=== PATIENT | female | born 1940 | race Caucasian/White ===

== ENCOUNTER 2016-08-28 17:24 | Inpatient (IN) | payer MEDICARE, BC ==
[~2016-08-28] VITALS: Ht 165.1 cm; Wt 74.8 kg
--- NOTE | 2016-08-28 17:30 | NUR ---
PT BIB FOR [facility], N/V, DECREASED APPETITE FOR 3 DAYS. FAMILY MEMBER AT BS. HX OF STROKE- RIGHT SIDE DEFICIT. SEEN BY MD FOR EVAL. VSS. PT AAOX3. SAFETY AND COMFORT MEASURES PROVIDED. WILL MONITOR.
[2016-08-28] MEDS ORDERED: ONDANSETRON HCL/PF 4 MG/2 ML VIAL ONE (18:22)
[2016-08-28] MEDS ORDERED: MORPHINE SULFATE INJ 4 MG/ML DISP.SYRIN ONE (18:22)
[2016-08-28] MEDS ORDERED: IV SET PRIMARY PUMP SET 1 EA INFUS.SET MC ONE ×2 (18:23→22:22)
[2016-08-28] MEDS ORDERED: IV NS 0.9% 500 ML IV ONE (18:23)
[2016-08-28 18:26] LABS: BASOPHILS # (AUTO) 0.1 /CMM (0.0-0.2); BASOPHILS % (AUTO) 0.7 % (0.0-2.0); EOSINOPHILS # (AUTO) 0.1 /CMM (0.0-0.7); EOSINOPHILS % (AUTO) 1.4 % (0.0-6.0); HEMATOCRIT 38 % (33-45); HEMOGLOBIN 13.3 g/dL (11.5-14.8); LYMPHOCYTES # (AUTO) 2.2 /CMM (0.8-4.8); LYMPHOCYTES % (AUTO) 25.2 % (20.0-44.0); MEAN CORPUSCULAR HEMOGLOBIN 32 PG (26.0-33.0); MEAN CORPUSCULAR HGB CONC 35 g/dl (31.0-36.0); MEAN CORPUSCULAR VOLUME 92 fL (82-100); MONOCYTES # (AUTO) 0.6 /CMM (0.1-1.30); MONOCYTES % (AUTO) 6.6 % (2.0-12.0); NEUTROPHILS # (AUTO) 5.9 /CMM (1.8-8.9); NEUTROPHILS % (AUTO) 66.1 % (43.0-81.0); PLATELET COUNT (AUTO) 225 /CMM (150-450); RDW COEFFICIENT OF VARIATION 11.1 (11.5-15.0); RED BLOOD CELL COUNT(AUTO) 4.17 MIL/uL (4.0-5.2); WHITE BLOOD COUNT (AUTO) 8.9 K/uL (4.3-11.0)
[2016-08-28] MEDS ORDERED: MORPHINE SULFATE INJ 2 MG/ML DISP.SYRIN IV ONE (18:30)
[2016-08-28] MEDS ORDERED: ONDANSETRON HCL/PF - ER 4 MG/2 ML VIAL IV ONE (18:30)
[2016-08-28] MEDS ORDERED: IV NS 0.9% 500 ML BAG IV ONE (18:30)
--- NOTE | 2016-08-28 18:30 | NUR ---
IV ACCESS STARTED. PT MEDICATED ORDERED. URINE SAMPLE OBTAINED,SENT.
[2016-08-28 18:42] LABS: ALBUMIN 3.8 g/dL (3.4-5.0); BILIRUBIN,DIRECT 0.2 mg/dL (0.0-0.2); BILIRUBIN,TOTAL 1.3 mg/dL (0.2-1.0); TOTAL PROTEIN, SERUM 6.5 g/dL (6.4-8.2)
[2016-08-28 18:44] LABS: CREATININE 0.5 mg/dL (0.6-1.3); POTASSIUM 2.9 mmol/L (3.5-5.1)
[2016-08-28 18:47] LABS: APPEARANCE,URINE Clear (CLEAR); BILIRUBIN,URINE Negative (NEGATIVE); BLOOD, URINE Trace-lysed Ery/uL (NEGATIVE); COLOR,URINE Yellow (YELLOW); KETONES,URINE >=160 (NEGATIVE); LEUKOCYTE ESTERASE ,URINE Trace (NEGATIVE); NITRITE, URINE Negative (NEGATIVE); PH,URINE 6.5 (5.0-8.0); PROTEIN,URINE 30 mg/dl (NEGATIVE); UGLUCOSE Negative (NEGATIVE)
[2016-08-28 18:48] LABS: LACTIC ACID 1.3 mmol/L (0.4-2.0)
[2016-08-28] MEDS ORDERED: IOHEXOL-300 100 ML VIAL IV ONE (19:03)
[2016-08-28] MEDS ORDERED: CT SWABBABLE VALVE TRANS SET 1 EA INFUS.SET MC ONE (19:03)
[2016-08-28] MEDS ORDERED: IV NS 0.9% 250 ML IV ONE (19:03)
[2016-08-28 19:07] LABS: ADD URINE CULTURE YES; BACTERIA,URINE Few /HPF (None Seen); MUCUS,URINE Few /LPF (None Seen); RBC,URINE 2-3/HPF /HPF (0-2); SQUAMOUS EPITHELIAL CELL,UR Many /HPF (None Seen); URINE AMORPHOUS URATE Moderate /HPF (None Seen)
--- NOTE | 2016-08-28 19:15 | NUR ---
PT TAKEN TO CT
--- NOTE | 2016-08-28 20:00 | NUR ---
DR. HAN AT BEDSIDE.
[2016-08-28] MEDS ORDERED: LOSARTAN POTASSIUM 25 MG TABLET PO ONE (20:30)
[2016-08-28] MEDS ORDERED: LOSARTAN POTASSIUM 25 MG TABLET ONE (20:31)
--- NOTE | 2016-08-28 20:40 | NUR ---
CALLED [employer] FOR ADMISSION.
--- NOTE | 2016-08-28 20:55 | NUR ---
Note undone in EDM - 08/28/16 at 2057 by PEG IV removed. Catheter intact and site benign. Pressure and 4x4 applied to site. No bleeding noted. Patient discharged to home in stable condition. Written and verbal after care instructions given. Patient verbalizes understanding of instruction. ambulatory with a steady gait noted. pt aaox4 no acute distress noted, resp even and unlabored. advice pt not to drive or operate any machinery due to pt was given benadryl and narcotic medicine. pt verbalize understanding.
--- NOTE | 2016-08-28 21:03 | NUR ---
lennox nuñez [facility] mur[facility]. will call for report.
--- NOTE | 2016-08-28 21:18 | NUR ---
report called to teletypewriter operatorkristina camara. will transport pt via acls protocol.
[2016-08-28 21:45] VITALS: BP 184/79
--- NOTE | 2016-08-28 21:45 | NUR ---
TELE/RN NOTES RECEIVED REPORT FROM ER NURSE EDFOR NEW ADMITTED [id number] Y.O FEMALE FROM [facility]) ALERT, ORIENTED X2. ABLE TO VERBALIZE NEEDS. NO S/S OF SOB OR DISTRESS. ON OXYGEN 2L VANESSA NC FOR COMFORT MEASURES.IV ON LEFT HAND20 G , PATERNT.B/P ELEVATEDAND REPORTED TO MD b/p 184/79 with prn clonidine order. POTASSIUM AT 2.9 WITH ORDER OF 2 BAGS TO GIVE. ON IV ATB FOR UTI. WILL CONTINUE TO MONITOR. BELONGINGS CHECK. SKIN INTACT. CALL LIGHTS WITHIN REACH.
[2016-08-28] MEDS ORDERED: IV NS 0.9% 1,000 ML IV PRN (21:48)
[2016-08-28] MEDS ORDERED: CEFTRIAXONE 1 G in IV D5W 50 ML IV SCH (22:00)
[2016-08-28] MEDS ORDERED: ONDANSETRON HCL/PF 4 MG/2 ML VIAL IVP PRN (22:00)
[2016-08-28] MEDS ORDERED: CLONIDINE HCL 0.1 MG TABLET PO PRN (22:00)
[2016-08-28] MEDS ORDERED: MAG HYDROX/AL HYDROX/SIMETH 30 ML UDC PO PRN (22:00)
[2016-08-28] MEDS ORDERED: Z GUARD REMEDY 2 OZ OINT TP PRN (22:00)
[2016-08-28] MEDS ORDERED: ZOLPIDEM TARTRATE 5 MG TABLET PO PRN (22:00)
[2016-08-28] MEDS ORDERED: MAGNESIUM HYDROXIDE 30 ML UDC PO PRN (22:00)
[2016-08-28] MEDS ORDERED: POTASSIUM CL. PREMIX PERIPHER. 100 ML ONE (22:18)
[2016-08-28] MEDS ORDERED: CLONIDINE HCL 0.1 MG TABLET ONE (22:19)
[2016-08-28] MEDS ORDERED: IV NS 0.9% 1,000 ML ONE (22:22)
[2016-08-28] MEDS ORDERED: SECONDARY IV SET 1 EA INFUS.SET MC ONE (22:22)
[2016-08-28] MEDS: POTASSIUM CL. PREMIX PERIPHER. 50 ML IV SCH ×2 (22:47→23:57)
[2016-08-29] VITALS: BP 160/71
--- NOTE | 2016-08-29 00:53 | NUR ---
TELE/RN NOTES PATIENT TELE READING SR WITH PREMATURE ATRIAL COMPLEXES.
[2016-08-29] MEDS ORDERED: CEFTRIAXONE 1 G VIAL ONE (01:00)
[2016-08-29] MEDS ORDERED: IV D5W 50 ML IV ONE (01:01)
[2016-08-29] MEDS ORDERED: SECONDARY IV SET 1 EA INFUS.SET MC ONE (01:01)
[2016-08-29 02:19] VITALS: BP 160/71
[2016-08-29] MEDS ORDERED: ACETAMINOPHEN 325 MG TABLET ONE (03:19)
[2016-08-29] MEDS: ACETAMINOPHEN 325 MG TABLET PO PRN ×2 (03:24→22:22)
--- NOTE | 2016-08-29 06:34 | NUR ---
TELE/RN NOTES PATIENT IN BED, ASLEEP W/ NO S/S OF SOB OR DISTRESS. PROVIDE FLUIDS. MONITORING FOR ANY S/S OF COMPLICATION. WILL ENDORSE TO AM RN FOR KALLI.
--- NOTE | 2016-08-29 07:15 | NUR ---
TELE/RN AM NOTES RECEIVED PATIENT IN BED, AWAKE, ALERT, WITHOUT SOB, NO CHEST PAIN, ON OXYGEN 2L/M EMMA N/C TOLERATING WELL, SAT 99%. TELE MONITOR IN PLACE, PROPERLY WORKING HR 58, ASYMPTOMATIC. IV LINE LEFT HAND INTACT, PATENT. PER AUTO MECHANIC SUPERVISOR NURSE PATIENT HAS FECAL IMPACTION, WILL NOTIFY MD ACCORDINGLY. KEPT COMFORTABLE, NEEDS ANTICIPATED WITH CALL LIGHT WITHIN EASY REACH. WILL CONTINUE TO MONITOR
[2016-08-29 08:00] VITALS: BP 140/63
[2016-08-29 08:00] LABS: BASOPHILS % (AUTO) 0.4 % (0.0-2.0); EOSINOPHILS # (AUTO) 0.2 /CMM (0.0-0.7); EOSINOPHILS % (AUTO) 2.1 % (0.0-6.0); HEMATOCRIT 39 % (33-45); HEMOGLOBIN 13.3 g/dL (11.5-14.8); LYMPHOCYTES # (AUTO) 1.9 /CMM (0.8-4.8); LYMPHOCYTES % (AUTO) 18.5 % (20.0-44.0); MEAN CORPUSCULAR HEMOGLOBIN 32 PG (26.0-33.0); MEAN CORPUSCULAR HGB CONC 35 g/dl (31.0-36.0); MEAN CORPUSCULAR VOLUME 93 fL (82-100); MONOCYTES # (AUTO) 0.6 /CMM (0.1-1.30); MONOCYTES % (AUTO) 6.4 % (2.0-12.0); NEUTROPHILS # (AUTO) 7.3 /CMM (1.8-8.9); NEUTROPHILS % (AUTO) 72.6 % (43.0-81.0); PLATELET COUNT (AUTO) 222 /CMM (150-450); RDW COEFFICIENT OF VARIATION 12.5 (11.5-15.0); RED BLOOD CELL COUNT(AUTO) 4.16 MIL/uL (4.0-5.2)
[2016-08-29 08:31] LABS: CALCIUM, SERUM 8.6 mg/dL (8.5-10.1); CREATININE 0.5 mg/dL (0.6-1.3); MAGNESIUM 1.8 mg/dL (1.8-2.4); PHOSPHORUS 4.2 mg/dL (2.5-4.9)
[2016-08-29] MEDS ORDERED: ATOR10TA PO (09:37)
[2016-08-29] MEDS ORDERED: GLUC500T12 PO (09:37)
[2016-08-29] MEDS ORDERED: CLOP75TA2 PO (09:37)
[2016-08-29] MEDS ORDERED: DIPH1TAB70 PO (09:37)
[2016-08-29] MEDS ORDERED: CLOT10TR PO (09:37)
[2016-08-29] MEDS ORDERED: DOCU250C75 PO (09:37)
[2016-08-29] MEDS ORDERED: FURO20TA4 PO (09:37)
[2016-08-29] MEDS ORDERED: DULO20CA PO (09:37)
[2016-08-29] MEDS ORDERED: SACC250C6 PO (09:37)
[2016-08-29] MEDS ORDERED: HYDR-548 PO (09:37)
[2016-08-29] MEDS ORDERED: LIDO30AD10 TP (09:43)
[2016-08-29] MEDS ORDERED: LOSA50TA21 PO (09:43)
[2016-08-29] MEDS ORDERED: MEMA10TA PO (09:43)
[2016-08-29] MEDS ORDERED: QUET25TA PO (09:43)
[2016-08-29] MEDS ORDERED: POLY17PO4 PO (09:43)
[2016-08-29] MEDS ORDERED: POTA-88 PO (09:43)
[2016-08-29] MEDS ORDERED: ONDA4TAB5 PO (09:43)
[2016-08-29] MEDS ORDERED: LORA0.5T PO (09:43)
[2016-08-29] MEDS ORDERED: PREG50CA PO (09:43)
[2016-08-29] MEDS ORDERED: MELO-264 PO (09:43)
[2016-08-29] MEDS ORDERED: CALC500T52 PO (09:43)
[2016-08-29] MEDS ORDERED: MULT-24 PO (09:43)
[2016-08-29] MEDS: DOCUSATE SODIUM 100 MG CAPSULE PO SCH ×2 (09:46→17:40)
[2016-08-29] MEDS: PANTOPRAZOLE 40 MG TABLET.DR PO SCH (09:46)
[2016-08-29] MEDS ORDERED: VITA200C5 PO (09:47)
[2016-08-29] MEDS ORDERED: ASCO500T9 PO (09:47)
[2016-08-29] MEDS ORDERED: TAMS-12 PO (09:47)
[2016-08-29] MEDS ORDERED: RANI150C4 PO (09:47)
[2016-08-29] MEDS ORDERED: TOLT4CAP14 PO (09:47)
[2016-08-29] MEDS ORDERED: REPA2TAB9 PO (09:47)
[2016-08-29] MEDS ORDERED: VENL75CA56 PO (09:47)
[2016-08-29] MEDS ORDERED: BISACODYL SUPP (10 MG) 10 MG/SUPP.RECT SUPP.RECT RC PRN (10:00)
--- NOTE | 2016-08-29 10:05 | NUR ---
TELE/RN NOTES DR. LOPEZ VISITED/EXAMINED PATIENT, ORDERED DULCOLAX 10 MG PER RECTUM QD PRN, NOTED CARRIED OUT
--- NOTE | 2016-08-29 10:33 | NUR ---
TELE/RN NOTES DULCOLAX SUPPOSITORY GIVEN, TOLERATED WELL, WILL CONTINUE TO MONITOR
[2016-08-29] MEDS ORDERED: Potassium Chloride 20 MEQ in IV NS 0.9% 1,000 ML IV PRN (11:30)
[2016-08-29 12:00] VITALS: BP 149/70
[2016-08-29] MEDS: POTASSIUM CHLORIDE 20 MEQ TAB.PRT.SR PO SCH ×3 (12:30→14:17)
--- NOTE | 2016-08-29 12:52 | NUR ---
TELE/RN NOTES PATIENT HAD LARGE BM, DR. LOPEZ MADE AWARE
[2016-08-29 16:00] VITALS: BP 145/71
--- NOTE | 2016-08-29 19:56 | NUR ---
MS/RN CLOSING NOTES PATIENT IS IN THE BED, AWAKE, ALERT, WITHOUT SOB, ON OXYGEN 2L/M VIA N/C TOLERATING WELL. IV INTACT ON LEFT HAND, PATENT. KEPT CLEAN DRY, COMFORTABLE, BED IN LOW POSITION, 2SR UP FOR SAFETY, NEEDS MET IN TIMELY MANNER WITH CALL NIGHT WITHIN EASY REACH ALL THE TIME. ENDORSED TO THE FULLER BRUSH MAN NURSE FOR KALLI
[2016-08-29 20:00] VITALS: BP 139/56
--- NOTE | 2016-08-29 20:00 | NUR ---
MS GARRET INITIAL NOTES SEEN PT IN BED AWAKE AND ALERT WATCHING TV AT THIS TIME, NOTED RIGHT SIDE WEAKNESS. SKIN WARM AND DRY TO TOUCH, NO SIGNS OF ANY ACUTE DISTRESS NOTED. DVT PUMP APPLIED ORDERED. KEPT HER COMFORTABLE AT ALL TIMES. WILL CONTINUE TO MONITOR.
--- NOTE | 2016-08-29 22:25 | NUR ---
PORTUGUESE TUTOR/NOTES NIGHT CARE RENDERED AND TYLENOL GIVEN FOR PT HEADACHE. REPOSITION HER FOR COMFORT. KEPT HER WARM AND COMFORTABLE AT ALL TIMES. WILL CONTINUE TO MONITOR. PLACE CALL LIGHT AT REACH.
--- NOTE | 2016-08-30 07:30 | NUR ---
MS RN OPENING NOTES RECEIVED PT. FROM NIGHTSHIFT NURSE IN STABLE CONDITION. PT. IS SLEEPING IN BED. NO SOB OR SIGNS OF DISTRESS NOTED. BREATHING EVEN AND UNLABORED. CURRENTLY ON 2L OXYGEN VIA NC AND TOLERATING IT WELL. IV ON LEFT HAND 20G PATENT AND INTACT. NO REDNESS OR INFILTRATION NOTED. BED IN LOW LOCKED POSITION, SIDE RAILS UP X3, CALL LIGHT WITHIN PT REACH. WILL CONTINUE TO MONITOR.
--- NOTE | 2016-08-30 07:30 | NUR ---
TOWER OPERATOR/CLOSING NOTES PT REMAINS RESTING COMFORTABLY IN BED WITHOUT ANY ACUTE DISTRESS NOTED . STABLE AL THE NIGHT AND SLEPT WELL. KEPT HER COMFORTABLE AT ALL TIMES. ENDORSE TO AM NURSE.
[2016-08-30 07:54] LABS: BASOPHILS % (AUTO) 0.4 % (0.0-2.0); EOSINOPHILS # (AUTO) 0.2 /CMM (0.0-0.7); EOSINOPHILS % (AUTO) 2.9 % (0.0-6.0); HEMATOCRIT 36 % (33-45); HEMOGLOBIN 12.7 g/dL (11.5-14.8); LYMPHOCYTES # (AUTO) 1.8 /CMM (0.8-4.8); LYMPHOCYTES % (AUTO) 24.9 % (20.0-44.0); MEAN CORPUSCULAR HEMOGLOBIN 32 PG (26.0-33.0); MEAN CORPUSCULAR HGB CONC 35 g/dl (31.0-36.0); MEAN CORPUSCULAR VOLUME 92 fL (82-100); MONOCYTES # (AUTO) 0.5 /CMM (0.1-1.30); MONOCYTES % (AUTO) 7.3 % (2.0-12.0); NEUTROPHILS # (AUTO) 4.6 /CMM (1.8-8.9); NEUTROPHILS % (AUTO) 64.5 % (43.0-81.0); PLATELET COUNT (AUTO) 192 /CMM (150-450); RDW COEFFICIENT OF VARIATION 12.1 (11.5-15.0); RED BLOOD CELL COUNT(AUTO) 3.95 MIL/uL (4.0-5.2); WHITE BLOOD COUNT (AUTO) 7.1 K/uL (4.3-11.0)
[2016-08-30 08:00] VITALS: BP 154/74
[2016-08-30 08:03] LABS: CALCIUM, SERUM 8.7 mg/dL (8.5-10.1); CREATININE 0.4 mg/dL (0.6-1.3); POTASSIUM 3.4 mmol/L (3.5-5.1)
[2016-08-30] MEDS: PANTOPRAZOLE 40 MG TABLET.DR PO SCH (09:30)
[2016-08-30] MEDS: DOCUSATE SODIUM 100 MG CAPSULE PO SCH ×2 (09:30→17:59)
[2016-08-30] MEDS ORDERED: SIMETHICONE 80 MG TAB.CHEW PO PRN (10:00)
[2016-08-30] MEDS ORDERED: POTASSIUM CHLORIDE 20 MEQ TAB.PRT.SR PO SCH (12:30)
[2016-08-30 16:00] VITALS: BP 148/70
[2016-08-30] MEDS ORDERED: HYDROCODONE/APAP 10/325MG 1 EA TABLET PO PRN (17:30)
[2016-08-30] MEDS ORDERED: LORAZEPAM 0.5 MG TABLET PO PRN (17:30)
[2016-08-30] MEDS ORDERED: POTASSIUM CHLORIDE 20 MEQ TAB.PRT.SR PO ONE (17:30)
[2016-08-30] MEDS ORDERED: DIPHENOXYLATE HCL/ATROP SULF 1 UDTAB TABLET PO PRN (17:30)
--- NOTE | 2016-08-30 18:00 | NUR ---
MS RN CLOSING NOTES PT. IN STABLE CONDITION. NO SOB OR SIGNS OF DISTRESS NOTED. BREATHING EVEN AND UNLABORED. CURRENTLY ON 2L OXYGEN VIA NC AND TOLERATING IT WELL. IV ON LEFT HAND 20G PATENT AND INTACT. NO REDNESS OR INFILTRATION NOTED. BED IN LOW LOCKED POSITION, SIDE RAILS UP X3, CALL LIGHT WITHIN PT REACH. ALL ORDERS CARRIED OUT THROUGHOUT SHIFT. WILL ENDORSE TO NIGHTSHIFT NURSE FOR KALLI
--- NOTE | 2016-08-30 19:50 | NUR ---
MS/RN NOTES RECEIVED PT. LYING IN BED. AWAKE, ALERT AND ORIENTED X2. BREATHING EVEN AND UNLABORED ON 2LPM O2 VIA NC. NO SOB, RESPIRATORY DISTRESS OR COMPLAINTS OF PAIN NOTED AT THIS TIME. PT. WITH LEFT HAND 20 GAUGE PERIPHERAL IV PRESENT, PATENT AND INTACT. BED IN LOWEST POSITION, CALL LIGHT WITHIN REACH, WILL CONTINUE TO MONITOR.
[2016-08-30] MEDS ORDERED: HYDROCODONE/APAP 10/325MG 1 EA TABLET ONE (19:53)
[2016-08-30 20:00] VITALS: BP 165/71
[2016-08-30] MEDS: FAMOTIDINE (20 MG) 20 MG TABLET PO SCH (21:37)
[2016-08-30] MEDS ORDERED: ATORVASTATIN 10 MG TABLET PO SCH (22:00)
[2016-08-30] MEDS ORDERED: QUETIAPINE FUMARATE 25 MG TABLET PO SCH (22:00)
--- NOTE | 2016-08-31 01:00 | NUR ---
MS/RN NOTES INFORMED SWEET DOUGH MIXER EVELYNE PT. WITH ELEVATED BP RANGING FROM 160-175 SYSTOLIC. PT. IS ASYMPTOMATIC. PT. HAS CATAPRES 0.1MG PO PRN SYSTOLIC BP >180 OR DIASTOLIC BP >100. PER [facility] NO NEW ORDERS, MAINTAIN THE CURRENT PARAMETERS FOR PRN CATAPRES. WILL CONTINUE TO MONITOR.
--- NOTE | 2016-08-31 06:25 | NUR ---
MS/RN NOTES PT. LYING IN BED RESTING. BREATHING EVEN AND UNLABORED. NO SOB, RESPIRATORY DISTRESS OR COMPLAINTS OF PAIN NOTED AT THIS TIME. PT. APPEARS COMFORTABLE AT THIS TIME. PT. WITH LEFT HAND 20 GAUGE PERIPHERAL IV PRESENT, PATENT AND INTACT ADMINISTERING TO PT. NS WITH 20MEQ KCL @ 75ML/HR. ALL PT. NEEDS MET. BED IN LOWEST POSITION, CALL LIGHT WITHIN REACH, WILL ENDORSE TO DAYSHIFT NURSE FOR CONTINUITY OF CARE.
--- NOTE | 2016-08-31 07:10 | NUR ---
MS RN OPENING NOTES RECEIVED PT. FROM NIGHTSHIFT NURSE IN STABLE CONDITION. PT. IS SLEEPING IN BED. NO SOB OR SIGNS OF DISTRESS NOTED. BREATHING EVEN AND UNLABORED. CURRENTLY ON 2L OXYGEN VIA NC AND TOLERATING IT WELL. IV ON LEFT HAND 20G PATENT AND INTACT RUNNING NS WITH 20MEQ KCL.. NO REDNESS OR INFILTRATION NOTED. PT TOLERATING INFUSION WELL. BED IN LOW LOCKED POSITION, SIDE RAILS UP X3, CALL LIGHT WITHIN PT REACH. WILL CONTINUE TO MONITOR.
[2016-08-31] MEDS: PANTOPRAZOLE 40 MG TABLET.DR PO SCH (07:30)
[2016-08-31 08:00] VITALS: BP 196/75
[2016-08-31 09:00] VITALS: BP 146/72
[2016-08-31] MEDS: FAMOTIDINE (20 MG) 20 MG TABLET PO SCH (09:00)
[2016-08-31] MEDS ORDERED: DOCUSATE SODIUM 250 MG CAPSULE PO SCH (09:00)
[2016-08-31] MEDS ORDERED: ASCORBIC ACID 500 MG TABLET PO SCH (09:00)
[2016-08-31] MEDS ORDERED: DULOXETINE HCL 20 MG CAPSULE.DR PO SCH (09:00)
[2016-08-31] MEDS ORDERED: MULTIVITAMINS,THERAPEUTIC 1 UDTAB TABLET PO SCH (09:00)
[2016-08-31] MEDS ORDERED: CLOPIDOGREL BISULFATE 75 MG TABLET PO SCH (09:00)
[2016-08-31] MEDS ORDERED: VITAMIN E 200 UNIT PO SCH (09:00)
[2016-08-31] MEDS ORDERED: TOLTERODINE 2 MG TABLET PO SCH (09:00)
[2016-08-31] MEDS ORDERED: POLYETHYLENE GLYCOL 3350 17 GM POWD.PACK PO SCH (09:00)
[2016-08-31] MEDS ORDERED: CALCIUM CARBONATE (1250) 500 MG TABLET PO SCH (09:00)
[2016-08-31] MEDS ORDERED: VENLAFAXINE XR 75 MG CAP.SR.24H PO SCH (09:00)
[2016-08-31] MEDS ORDERED: MEMANTINE HCL 5 MG TABLET PO SCH (09:00)
[2016-08-31] MEDS: DOCUSATE SODIUM 100 MG CAPSULE PO SCH (09:00)
[2016-08-31] MEDS ORDERED: LACTOBACILLUS RHAMNOSUS GG 1 EACH CAP.SPRINK PO SCH (09:00)
[2016-08-31] MEDS ORDERED: CLOTRIMAZOLE 10 MG TROCHE MM SCH (09:00)
[2016-08-31] MEDS ORDERED: LIDOCAINE 5% (PATCH) 1 EA PATCH TP SCH (09:00)
[2016-08-31] MEDS ORDERED: LOSARTAN POTASSIUM 50 MG TABLET PO SCH (09:00)
[2016-08-31] MEDS ORDERED: GLUCOSAMINE HCL 1000 MG PO SCH (09:00)
[2016-08-31] MEDS ORDERED: FUROSEMIDE 20 MG TABLET PO SCH (09:00)
[2016-08-31] MEDS ORDERED: POTASSIUM CHLORIDE 20 MEQ TAB.PRT.SR PO SCH (09:00)
[2016-08-31] MEDS ORDERED: REPAGLINIDE 2 MG TABLET PO SCH (09:00)
[2016-08-31] MEDS ORDERED: PREGABALIN 25 MG CAPSULE PO SCH (09:00)
[2016-08-31] MEDS ORDERED: TAMSULOSIN 0.4 MG CAP.SR.24H PO SCH (09:00)
--- NOTE | 2016-08-31 09:43 | NUR ---
MS RN NOTES PT REFUSED ALL MORNING MEDICATIONS. MEDICATION EDUCATION WAS REINFORCED SEVERAL TIMES. WILL CONTINUE TO MONITOR.
--- NOTE | 2016-08-31 14:35 | NUR ---
MS RN NOTES PT LEFT THE UNIT IN STABLE CONDITION. TRANSFERRED SAFELY FROM HOSPITAL VIA AMBULANCE.
== END 2016-08-31 14:30 | DRG 690 ==
LOC: EDUNIT# 17:24 → ER 17:26 → MED 21:21 → TELE 22:26 → MED 08-29 15:35
PROVIDERS: ADMIT Nurse Practitioner Acute Care; ATTEND Nurse Practitioner Acute Care
DX: N39.0 Urinary tract infection, site not specified (principal); B96.89 Other specified bacterial agents as the cause of diseases classified elsewhere; E78.5 Hyperlipidemia, unspecified; E86.0 Dehydration; F03.90 Unspecified dementia, unspecified severity, without behavioral disturbance, psychotic disturbance, mood disturbance, and anxiety; E87.6 Hypokalemia; I48.91 Unspecified atrial fibrillation; Z86.73 Personal history of transient ischemic attack (TIA), and cerebral infarction without residual deficits; I10 Essential (primary) hypertension; Z87.891 Personal history of nicotine dependence; K56.41 Fecal impaction
CPT/HCPCS: 36415; 80048-TC; 80061-TC; 80076-TC; 81000-TC; 83605-TC; 83690-TC; 83735-TC; 84100-TC; 85025-TC; 87086-TC; A4606; J0696; J2270; J2405; J3480; J7030; J7040; J7050; J7060; Q9967; Z7610

== ENCOUNTER 2016-11-30 19:32 | Emergency (ER) | payer MEDICARE, BC ==
[~2016-11-30] VITALS: Ht 167.6 cm; Wt 69.9 kg
[~2016-11-30 19:32] MED LIST: ASCO500T9 PO; ATOR10TA PO; CALC500T52 PO; CLOP75TA2 PO; CLOT10TR PO; DIPH1TAB70 PO; DOCU250C75 PO; DULO20CA PO; FURO20TA4 PO; GLUC500T12 PO; HYDR-548 PO; LIDO30AD10 TP; LORA0.5T PO; LOSA50TA21 PO; MELO-264 PO; MEMA10TA PO; MULT-24 PO; ONDA4TAB5 PO; POLY17PO4 PO; POTA-88 PO; PREG50CA PO; QUET25TA PO; RANI150C4 PO; REPA2TAB9 PO; SACC250C6 PO; TAMS-12 PO; TOLT4CAP14 PO; VENL75CA56 PO; VITA200C5 PO
--- NOTE | 2016-11-30 19:42 | NUR ---
PT BIBRA TO ER BED 12. C/O R SIDED BODY AND LOWER BACK PAIN S/P SLIPPED OUT OF A CHAIR. NO OBVIOUS TRAUMA NOTED. PLACED ON MONITOR. AWAITING MD MILLER.
--- NOTE | 2016-11-30 19:51 | NUR ---
DR HAN AT BEDSIDE FOR EVAL.
--- NOTE | 2016-11-30 20:00 | NUR ---
PT TO RADIOLOGY FOR R HUMERUS/R FEMUR, SACAL AND COCCYX XRAY VIA RNEY.
[2016-11-30] MEDS ORDERED: ACETAMINOPHEN ES 500 MG TABLET PO ONE (20:30)
[2016-11-30] MEDS ORDERED: ACETAMINOPHEN ES 500 MG TABLET ONE (20:38)
--- NOTE | 2016-11-30 22:02 | NUR ---
CALLED [facility] FOR TRANSPORT BACK TO [facility]. ETA 20-30 MINUTES
[2016-11-30] MEDS ORDERED: LISINOPRIL (5MG) 5 MG TABLET ONE (22:21)
[2016-11-30] MEDS ORDERED: LISINOPRIL (10MG) 10 MG TABLET PO ONE (22:30)
--- NOTE | 2016-11-30 23:23 | NUR ---
Patient discharged to home in stable condition. Written and verbal after care instructions given. Patient verbalizes understanding of instruction.
[2016-11-30 23:24] VITALS: BP 180/84
== END 2016-11-30 23:25 | disposition home or self-care (01) ==
LOC: ER 19:33
DX: S32.2XXA Fracture of coccyx, initial encounter for closed fracture (principal); S40.021A Contusion of right upper arm, initial encounter; S80.11XA Contusion of right lower leg, initial encounter; E11.9 Type 2 diabetes mellitus without complications; E78.00 Pure hypercholesterolemia, unspecified; F03.90 Unspecified dementia, unspecified severity, without behavioral disturbance, psychotic disturbance, mood disturbance, and anxiety; I10 Essential (primary) hypertension; M48.06 Spinal stenosis, lumbar region; M53.3 Sacrococcygeal disorders, not elsewhere classified; M79.7 Fibromyalgia; Z88.1 Allergy status to other antibiotic agents; Z88.8 Allergy status to other drugs, medicaments and biological substances; Z86.73 Personal history of transient ischemic attack (TIA), and cerebral infarction without residual deficits; W05.0XXA Fall from non-moving wheelchair, initial encounter; Y93.89 Activity, other specified; Y92.89 Other specified places as the place of occurrence of the external cause; Y99.9 Unspecified external cause status
CPT/HCPCS: 72220-TC; 73060-TC; 73552; A4606; Z7610

== ENCOUNTER 2017-01-10 09:46 | Inpatient (IN) | payer MEDICARE, BC ==
[~2017-01-10] VITALS: Ht 162.6 cm; Wt 71.3 kg
--- NOTE | 2017-01-10 00:30 | NUR ---
RN NOTES PATIENT IN BED, SLEEPING COMFORTABLY. NO RESPIRATORY DISTRESS. ON 2LPM OF O2 VIA NC, RESPIRATION EVEN AND UNLABORED. ON CLOSE MONITORING. Addendum: 01/11/17 at 0140 by KENYETTA TSAI RN PLEASE DISREGARD. CHARTING IS MEANT FOR 01/11/17 AT 0030.
[2017-01-10 10:00] LABS: BASOPHILS # (AUTO) 0.2 /CMM (0.0-0.2); EOSINOPHILS # (AUTO) 0.2 /CMM (0.0-0.7); EOSINOPHILS % (AUTO) 2.9 % (0.0-6.0); HEMATOCRIT 40 % (33-45); HEMOGLOBIN 13.6 g/dL (11.5-14.8); LYMPHOCYTES # (AUTO) 1.4 /CMM (0.8-4.8); LYMPHOCYTES % (AUTO) 16.7 % (20.0-44.0); MEAN CORPUSCULAR HEMOGLOBIN 32 PG (26.0-33.0); MEAN CORPUSCULAR HGB CONC 34 g/dl (31.0-36.0); MEAN CORPUSCULAR VOLUME 92 fL (82-100); MONOCYTES # (AUTO) 0.5 /CMM (0.1-1.30); MONOCYTES % (AUTO) 5.9 % (2.0-12.0); NEUTROPHILS % (AUTO) 72.5 % (43.0-81.0); PLATELET COUNT (AUTO) 202 /CMM (150-450); RDW COEFFICIENT OF VARIATION 11.7 (11.5-15.0); RED BLOOD CELL COUNT(AUTO) 4.28 MIL/uL (4.0-5.2); WHITE BLOOD COUNT (AUTO) 8.3 K/uL (4.3-11.0)
[2017-01-10] MEDS ORDERED: MORPHINE SULFATE INJ 2 MG/ML DISP.SYRIN IV ONE (10:00)
[2017-01-10] MEDS ORDERED: ONDANSETRON HCL/PF 4 MG/2 ML VIAL IVP ONE (10:00)
--- NOTE | 2017-01-10 10:00 | NUR ---
PATIENT BIB [facility] C/O RIGHT SHOULDER PAIN, S/P GLF. PATIENT FOUND ON FLOOR AT SNF, STATING SHE SLID OFF HER CHAIR. PATIENT IS A/OX 4. BREATHING EVEN AND UNLABORED. NO SOB. VITALS STABLE. SAFETY AND COMFORT MEASURSE IN PLACE. AWAITING MD ORDERS.
[2017-01-10] MEDS ORDERED: ONDA-25 PO (10:02)
[2017-01-10] MEDS ORDERED: MORPHINE SULFATE INJ 2 MG/ML DISP.SYRIN ONE (10:02)
[2017-01-10] MEDS ORDERED: NALO25TA PO (10:02)
[2017-01-10] MEDS ORDERED: DONE5TAB34 PO (10:02)
[2017-01-10] MEDS ORDERED: BISA10SU8 RC (10:02)
[2017-01-10] MEDS ORDERED: ONDANSETRON HCL/PF 4 MG/2 ML VIAL ONE (10:02)
[2017-01-10] MEDS ORDERED: METO-295 PO (10:02)
--- NOTE | 2017-01-10 10:05 | NUR ---
NEW IV STARTED ON LEFT HAND, 20 G. BLOOD DRAWN AND SENT TO LAB.
--- NOTE | 2017-01-10 10:10 | NUR ---
PATIENT MEDICATED PER MD ORDERS.
[2017-01-10 10:11] LABS: CALCIUM, SERUM 8.7 mg/dL (8.5-10.1); CARBON DIOXIDE 28 mmol/L (21-32); CHLORIDE 105 mmol/L (98-107); CREATININE 0.7 mg/dL (0.6-1.3); GLUCOSE 146 mg/dL (74-106); POTASSIUM 3.7 mmol/L (3.5-5.1); SODIUM SERUM 142 mmol/L (136-145); UREA NITROGEN, BLOOD 16 mg/dL (7-18)
[2017-01-10 10:17] LABS: ALANINE AMINOTRANSFERASE 15 U/L (12-78); ALBUMIN 3.6 g/dL (3.4-5.0); ALKALINE PHOSPHATASE 80 U/L (46-116); ASPARTATE AMINOTRANSFERASE 16 U/L (15-37); BILIRUBIN,DIRECT 0.1 mg/dL (0.0-0.2); BILIRUBIN,TOTAL 0.6 mg/dL (0.2-1.0); TOTAL PROTEIN, SERUM 6.4 g/dL (6.4-8.2)
[2017-01-10 10:19] LABS: TROPONIN I < 0.017 ng/mL (0.00-0.056)
--- NOTE | 2017-01-10 10:35 | NUR ---
OCCUPATIONAL HEALTH NURSE AT BEDSIDE.
[2017-01-10 10:36] LABS: PROTHROMBIN TIME 10.4 SECS (9.5-12.7)
[2017-01-10] MEDS ORDERED: DIPHENOXYLATE HCL/ATROP SULF 1 UDTAB TABLET PO PRN (11:30)
[2017-01-10] MEDS ORDERED: METOCLOPRAMIDE HCL 10 MG TABLET PO PRN (11:30)
[2017-01-10] MEDS ORDERED: ACETAMINOPHEN 325 MG TABLET PO PRN (11:30)
[2017-01-10] MEDS ORDERED: Z GUARD REMEDY 2 OZ OINT TP PRN (11:30)
[2017-01-10] MEDS ORDERED: BISACODYL SUPP (10 MG) 10 MG/SUPP.RECT SUPP.RECT RC PRN (11:30)
[2017-01-10] MEDS ORDERED: HYDROCODONE/APAP 5/325MG 1 EACH TABLET PO PRN (11:30)
[2017-01-10] MEDS ORDERED: MAGNESIUM HYDROXIDE 30 ML UDC PO PRN (11:30)
[2017-01-10] MEDS ORDERED: ENOXAPARIN SODIUM 30 MG/0.3 ML DISP.SYRIN SQ SCH (11:30)
[2017-01-10] MEDS ORDERED: MAG HYDROX/AL HYDROX/SIMETH 30 ML UDC PO PRN (11:30)
[2017-01-10] MEDS ORDERED: ONDANSETRON HCL/PF 4 MG/2 ML VIAL IVP PRN (11:30)
--- NOTE | 2017-01-10 12:02 | NUR ---
[facility] in [facility] - 01/10/17 at 1220 by GENO TELE 107
--- NOTE | 2017-01-10 12:26 | NUR ---
REPORT GIVEN TO MICHEAL. PT AWAITING TRANSFER TO FLOOR.
[2017-01-10 12:35] VITALS: BP 117/72
--- NOTE | 2017-01-10 12:37 | NUR ---
RN NOTES RECEIVED PT FROM ER VIA Jemima RAMAN@OX3 S/P FALL FROM SNF PT HAS R SHOULDER PAIN, NO FRACTURES. ON ROOM AIR NO SOB OR DISTRESS NOTED. 20GUAGE IV SITE ON HAND DRY AND CLEAN. SKIN IN TACT. CALL LIGHT WITHIN REACH, SIDE RAILS UPX3, BEDLOCKED AND IN LOWEST POSITION WILL CONT TO MONITOR.
[2017-01-10] MEDS: ENOXAPARIN SODIUM 30 MG/0.3 ML DISP.SYRIN SQ SCH ×2 (13:46→21:52)
[2017-01-10] MEDS: TOLTERODINE 2 MG TABLET PO SCH (13:52)
[2017-01-10] MEDS: POTASSIUM CHLORIDE 20 MEQ TAB.PRT.SR PO SCH (13:52)
[2017-01-10] MEDS ORDERED: ONDANSETRON 4 MG TAB.RAPDIS PO PRN (14:00)
[2017-01-10 16:00] VITALS: BP 145/72
[2017-01-10] MEDS: REPAGLINIDE 2 MG TABLET PO SCH (16:26)
[2017-01-10] MEDS: DOCUSATE SODIUM 250 MG CAPSULE PO SCH (16:26)
[2017-01-10] MEDS: MEMANTINE HCL 5 MG TABLET PO SCH (16:27)
[2017-01-10] MEDS: HYDROCODONE/APAP 10/325MG 1 EA TABLET PO SCH (16:28)
--- NOTE | 2017-01-10 18:27 | NUR ---
RN NOTES PT RESTING COMFORTABLY IN BED, NO SOB OR DISTRESS NOTED. RT MADE AWARE OF PT NEED FOR CPAP AT NIGHT. ALL NEEDS MET. PT CLEANED, CHANGED, ZGUARD APPLIED. IV SITE DRY AND INTACT. SR ON THE MONITOR HR IN THE 70S. CALL LIGHT WITHIN REACH, SIDE RAILS UPX3, BED LOCKED AND IN LOWEST POSITION WILL ENDORSE TO ONCOMING SHIFT
--- NOTE | 2017-01-10 19:15 | NUR ---
RN INITIAL NOTES RECEIVED PATIENT, AWAKE AND ALERT, ORIENTED X3. PATIENT DENIES ANY PAIN AND DISCOMFORT. ON ROOM AIR, NO RESPIRATORY DISTRESS. PATIENT REPORTS THAT SHE USES BIPAP AT NIGHT FOR SLEEP APNEA, REASSURED PATIENT NEEDED, COORDINATED WITH RT FOR THE BIPAP USAGE AND ORDER. PATIENT IS SR, HR AT 70s. PATIENT DENIES ANY PAIN AND DISCOMFORT AT THIS TIME. WITH L HAND G20, WILL START IVF ORDERED. PATIENT'S NEEDS ANTICIPATED AND MET. SAFETY AND COMFORT ENSURED. BED IN LOW AND LOCKED POSITION. CALL LIGHT IN REACH. WILL MONITOR CLOSELY.
[2017-01-10] MEDS: IV NS 0.9% 1,000 ML IV PRN (19:54)
[2017-01-10 20:00] VITALS: BP 149/67
[2017-01-10] MEDS: ATORVASTATIN 10 MG TABLET PO SCH (21:50)
[2017-01-10] MEDS: FAMOTIDINE (20 MG) 20 MG TABLET PO SCH (21:50)
[2017-01-10] MEDS: QUETIAPINE FUMARATE 25 MG TABLET PO SCH (21:50)
[2017-01-10] MEDS: DULOXETINE HCL 20 MG CAPSULE.DR PO SCH (21:50)
[2017-01-10] MEDS: DONEPEZIL 5 MG TABLET PO SCH (21:50)
[2017-01-10] MEDS: LORAZEPAM 0.5 MG TABLET PO SCH (21:50)
[2017-01-11] VITALS: BP 122/56
--- NOTE | 2017-01-11 00:06 | NUR ---
PT DID NOT TOLERATE CPAP MACHINE. PT USES NASAL CPAP AT HOME AND TOLD HER THAT I ONLY HAVE A FACE MASK. I PUT IT ON FOR 2MIN AND SHE SAID SHE CAN'T DO IT. PLACED HER ON 2L NC AND NOTIFIED THE NURSE. WILL CONTINUE TO MONITOR.
--- NOTE | 2017-01-11 00:30 | NUR ---
RN NOTES PATIENT IN BED, SLEEPING COMFORTABLY. NO RESPIRATORY DISTRESS. ON 2LPM OF O2 VIA NC, RESPIRATION EVEN AND UNLABORED. ON CLOSE MONITORING.
[2017-01-11 04:00] VITALS: BP 138/66
[2017-01-11 05:50] LABS: BASOPHILS # (AUTO) 0.1 /CMM (0.0-0.2); BASOPHILS % (AUTO) 0.8 % (0.0-2.0); EOSINOPHILS # (AUTO) 0.3 /CMM (0.0-0.7); EOSINOPHILS % (AUTO) 4.4 % (0.0-6.0); HEMATOCRIT 35 % (33-45); HEMOGLOBIN 11.8 g/dL (11.5-14.8); LYMPHOCYTES # (AUTO) 2.1 /CMM (0.8-4.8); LYMPHOCYTES % (AUTO) 31.6 % (20.0-44.0); MEAN CORPUSCULAR HEMOGLOBIN 32 PG (26.0-33.0); MEAN CORPUSCULAR HGB CONC 34 g/dl (31.0-36.0); MEAN CORPUSCULAR VOLUME 94 fL (82-100); MONOCYTES # (AUTO) 0.4 /CMM (0.1-1.30); MONOCYTES % (AUTO) 6.3 % (2.0-12.0); NEUTROPHILS # (AUTO) 3.7 /CMM (1.8-8.9); NEUTROPHILS % (AUTO) 56.9 % (43.0-81.0); PLATELET COUNT (AUTO) 170 /CMM (150-450); RDW COEFFICIENT OF VARIATION 12.2 (11.5-15.0); RED BLOOD CELL COUNT(AUTO) 3.66 MIL/uL (4.0-5.2); WHITE BLOOD COUNT (AUTO) 6.6 K/uL (4.3-11.0)
[2017-01-11 06:15] LABS: CALCIUM, SERUM 8.3 mg/dL (8.5-10.1); CARBON DIOXIDE 30 mmol/L (21-32); CHLORIDE 109 mmol/L (98-107); CREATININE 0.6 mg/dL (0.6-1.3); GLUCOSE 91 mg/dL (74-106); MAGNESIUM 1.8 mg/dL (1.8-2.4); PHOSPHORUS 4.1 mg/dL (2.5-4.9); POTASSIUM 3.7 mmol/L (3.5-5.1); SODIUM SERUM 144 mmol/L (136-145); UREA NITROGEN, BLOOD 16 mg/dL (7-18)
--- NOTE | 2017-01-11 06:25 | NUR ---
RN CLOSING NOTES PATIENT WITH NO ACUTE DISTRESS AND CHANGE IN CONDITION OBSERVED OVERNIGHT. STABLE ON 2LPM OF O2 VIA NC, NO RESPIRATORY DISTRESS, SLEPT COMFORTABLY. PATIENT KEPT CLEAN AND DRY. NEEDS ANTICIPATED AND MET. ALL DUE MEDS GIVEN ORDERED. AM LABS DRAWN. SAFETY AND COMFORT ENSURED. BED IN LOW AND LOCKED POSITION. CALL LIGHT IN REACH. WILL ENDORSE ACCORDINGLY FOR CONTINUITY OF CARE.
--- NOTE | 2017-01-11 07:33 | NUR ---
RN NOTES RECIVED PT FROM TIMBER TREATMENT PLANT OPERATOR IN STABLE CONDITION. A&OX3, RESTING IN BED COMFORTABLY WITH 2L NASAL CANNULA, NO SOB OR DISTRESS NOTED. SR ON THE MONITOR HR 63. L HAND GAUGE 20 IV SITE DRY AND INTACT, IVF AT 75ML/HR. SIDE RAILS UPX3, CALL LIGHT WITHIN REACH, BED LOCKED AND IN LOWEST POSITION WILL CONT TO MONITOR.
[2017-01-11 08:00] VITALS: BP 175/69
[2017-01-11] MEDS: MEMANTINE HCL 5 MG TABLET PO SCH ×2 (08:59→16:24)
[2017-01-11] MEDS: LOSARTAN POTASSIUM 50 MG TABLET PO SCH (08:59)
[2017-01-11] MEDS: CLOPIDOGREL BISULFATE 75 MG TABLET PO SCH (09:00)
[2017-01-11] MEDS: PREGABALIN 25 MG CAPSULE PO SCH (09:00)
[2017-01-11] MEDS: DOCUSATE SODIUM 250 MG CAPSULE PO SCH ×2 (09:00→16:25)
[2017-01-11] MEDS: TOLTERODINE 2 MG TABLET PO SCH (09:00)
[2017-01-11] MEDS: POTASSIUM CHLORIDE 20 MEQ TAB.PRT.SR PO SCH (09:00)
[2017-01-11] MEDS: TAMSULOSIN 0.4 MG CAP.SR.24H PO SCH (09:00)
[2017-01-11] MEDS: REPAGLINIDE 2 MG TABLET PO SCH ×2 (09:01→16:25)
[2017-01-11] MEDS: HYDROCODONE/APAP 10/325MG 1 EA TABLET PO SCH ×2 (09:01→16:25)
[2017-01-11] MEDS: LIDOCAINE 5% (PATCH) 1 EA PATCH TP SCH (09:01)
[2017-01-11] MEDS: POLYETHYLENE GLYCOL 3350 17 GM POWD.PACK PO SCH (09:01)
[2017-01-11] MEDS: MELOXICAM 7.5 MG TABLET PO SCH (09:03)
[2017-01-11] MEDS: FAMOTIDINE (20 MG) 20 MG TABLET PO SCH ×2 (09:03→23:13)
--- NOTE | 2017-01-11 10:52 | NUR ---
RN NOTES DR MCINTOSH AT BEDSIDE, STILL AWAITING PT EVAL, LEFT THEM A MESSAGE. ACCORDING TO DR MCINTOSH PT CAN GOT TO REHAB AFTER EVAL OR ON FRIDAY. WILL FOLLOW UP WITH DPOA, DIRECT OF REAL ESTATE, AND PT.
--- NOTE | 2017-01-11 11:15 | NUR ---
RN NOTES SPOKE TO BRICK WASHER HANNAH REGARDING REHAB CENTER. ACCORDING TO HANNAH PT CAN'T BE TRANSFERRED TO REHAB UNLESS SHE'S BEEN ADMITTED FOR TOTAL OF [address] MCINTOSH MADE AWARE.
[2017-01-11 12:00] VITALS: BP 139/62
[2017-01-11] MEDS: IV NS 0.9% 1,000 ML IV PRN (13:21)
--- NOTE | 2017-01-11 15:30 | NUR ---
RN NOTES DR GUY AT BEDSIDE GOT ORDER FOR DVT PUMPS. PER DR GYU IF PT COMPLETES LESS THAN 50% OF MEAL BOOST SHOULD BE GIVEN.
[2017-01-11 16:00] VITALS: BP 122/56
--- NOTE | 2017-01-11 18:54 | NUR ---
RN NOTES PT RESTING IN BED COMFORTABLY IN STABLE CONDITION, ON NASAL CANNULA, NO SOB OR DISTRESS NOTED. NO SIGNIFICANT CHANGES THROUGHOUT MY SHIFT. PT CLEANED, TURNED, AND REPOSITIONED. CALL LIGHT WITHIN REACH, SIDE RAILS UPX3, BED LOCKED AND IN LOWEST POSITION WILL ENDORSE TO ONCOMING SHIFT.
--- NOTE | 2017-01-11 19:15 | NUR ---
RN INITIAL NOTES RECEIVED PATIENT, AWAKE AND ALERT, NO DISTRESS. PATIENT DENIES ANY PAIN AND DISCOMFORT. ON 2LPM OF O2 VIA NC, NO RESPIRATORY DISTRESS. PATIENT IS IN SR. PATIENT DENIES ANY PAIN AND DISCOMFORT AT THIS TIME. WITH L HAND G20, IVF ORDERED. PATIENT'S NEEDS ANTICIPATED AND MET. SAFETY AND COMFORT ENSURED. BED IN LOW AND LOCKED POSITION. CALL LIGHT IN REACH. WILL MONITOR CLOSELY.
[2017-01-11 20:00] VITALS: BP_SYST 131; BP_SYST 133; BP_DIAS 55; BP_DIAS 75
[2017-01-11] MEDS: ATORVASTATIN 10 MG TABLET PO SCH (23:13)
[2017-01-11] MEDS: LORAZEPAM 0.5 MG TABLET PO SCH (23:13)
[2017-01-11] MEDS: QUETIAPINE FUMARATE 25 MG TABLET PO SCH (23:15)
[2017-01-11] MEDS: DULOXETINE HCL 20 MG CAPSULE.DR PO SCH (23:15)
[2017-01-11] MEDS: ENOXAPARIN SODIUM 30 MG/0.3 ML DISP.SYRIN SQ SCH (23:16)
[2017-01-11] MEDS: DONEPEZIL 5 MG TABLET PO SCH (23:16)
[2017-01-12] VITALS: BP 123/79
--- NOTE | 2017-01-12 01:30 | NUR ---
RN NOTES PATIENT SLEEPING COMFORTABLY, EASILY AROUSABLE. NO RESPIRATORY DISTRESS. ON 2LPM OF O2 VIA NC.
[2017-01-12 04:00] VITALS: BP 163/68
[2017-01-12] MEDS: IV NS 0.9% 1,000 ML IV PRN (04:45)
--- NOTE | 2017-01-12 06:18 | NUR ---
RN CLOSING NOTES PATIENT WITH NO ACUTE DISTRESS AND CHANGE IN CONDITION OBSERVED OVERNIGHT. SLEPT COMFORTABLY WITH 2LPM OF O2 VIA NC, NO BIPAP USED. PATIENT KEPT CLEAN AND DRY. NEEDS ANTICIPATED AND MET. ALL DUE MEDS GIVEN ORDERED. AM LABS DRAWN. SAFETY AND COMFORT ENSURED. BED IN LOW AND LOCKED POSITION. CALL LIGHT IN REACH. WILL ENDORSE ACCORDINGLY FOR CONTINUITY OF CARE. Addendum: 01/12/17 at 0655 by KENYETTA TSAI RN REMAINS SR AT 63.
[2017-01-12 08:00] VITALS: BP 176/71
--- NOTE | 2017-01-12 08:00 | NUR ---
RN NOTES RECEIVED PATIENT, RESTING IN BED, AWAKE AND ALERT, NO DISTRESS. PATIENT DENIES ANY PAIN AND DISCOMFORT. ON 2LPM OF O2 VIA NC, NO RESPIRATORY DISTRESS. PATIENT NOTED SR WITH 1ST DEGREE AV BLOCK. PT NOTED WITH C/O PAIN, WILL MEDICATE ORDERED. WITH L HAND G20, IVF INFUSING NS@75ML/HR ORDERED. PATIENT'S NEEDS ANTICIPATED AND MET. SAFETY AND COMFORT ENSURED. BED IN LOW AND LOCKED POSITION. CALL LIGHT IN REACH. WILL MONITOR CLOSELY.
[2017-01-12] MEDS: POLYETHYLENE GLYCOL 3350 17 GM POWD.PACK PO SCH (08:11)
[2017-01-12] MEDS: PREGABALIN 25 MG CAPSULE PO SCH (08:11)
[2017-01-12] MEDS: REPAGLINIDE 2 MG TABLET PO SCH ×2 (08:11→16:43)
[2017-01-12] MEDS: TOLTERODINE 2 MG TABLET PO SCH (08:12)
[2017-01-12] MEDS: POTASSIUM CHLORIDE 20 MEQ TAB.PRT.SR PO SCH (08:12)
[2017-01-12] MEDS: CLOPIDOGREL BISULFATE 75 MG TABLET PO SCH (08:12)
[2017-01-12] MEDS: LIDOCAINE 5% (PATCH) 1 EA PATCH TP SCH (08:12)
[2017-01-12] MEDS: TAMSULOSIN 0.4 MG CAP.SR.24H PO SCH (08:12)
[2017-01-12] MEDS: MELOXICAM 7.5 MG TABLET PO SCH (08:12)
[2017-01-12] MEDS: DOCUSATE SODIUM 250 MG CAPSULE PO SCH ×2 (08:12→16:43)
[2017-01-12] MEDS: MEMANTINE HCL 5 MG TABLET PO SCH ×2 (08:12→16:43)
[2017-01-12] MEDS: FAMOTIDINE (20 MG) 20 MG TABLET PO SCH ×2 (08:12→21:01)
[2017-01-12] MEDS: LOSARTAN POTASSIUM 50 MG TABLET PO SCH (08:13)
[2017-01-12] MEDS: HYDROCODONE/APAP 10/325MG 1 EA TABLET PO SCH ×2 (08:14→16:43)
[2017-01-12] MEDS ORDERED: NALOXEGOL OXALATE 25 MG PO SCH (09:00)
[2017-01-12 12:00] VITALS: BP 153/67
[2017-01-12 16:00] VITALS: BP_SYST 131; BP_SYST 132; BP_DIAS 55; BP_DIAS 59
--- NOTE | 2017-01-12 19:49 | NUR ---
DIVING BOARD ASSEMBLER NOTE PT IN BED AA/O X 3, NO DISTRESS OR DISCOMFORT NOTED. DENIES PAIN. ON 2L VIA N/C. ON TELE SR WITH 1ST DEGREE AV BLOCK HR 77. IVF NS @ 75 ML/HR INFUSING WELL AT LT HAND # 20 G INTACT AND PATENT, NO S/S OF INFILTRATION NOTED. DVT PUMP ON BILATERAL LOWER EXT'S ON. HEELS OFF LOADED. REPOSITION HER FOR COMFORT. SIDE RAILS UP X 2 AND CALL LIGHT WITHIN REACH. CONTINUE TO MONITOR HER.
[2017-01-12 20:00] VITALS: BP 123/57
[2017-01-12] MEDS: ENOXAPARIN SODIUM 30 MG/0.3 ML DISP.SYRIN SQ SCH (21:02)
[2017-01-12] MEDS: DULOXETINE HCL 20 MG CAPSULE.DR PO SCH (21:24)
[2017-01-12] MEDS: DONEPEZIL 5 MG TABLET PO SCH (21:24)
[2017-01-12] MEDS: ATORVASTATIN 10 MG TABLET PO SCH (21:24)
[2017-01-12] MEDS: LORAZEPAM 0.5 MG TABLET PO SCH (21:24)
[2017-01-12] MEDS: QUETIAPINE FUMARATE 25 MG TABLET PO SCH (21:24)
[2017-01-13] VITALS: BP 132/55
[2017-01-13 04:00] VITALS: BP 151/76
[2017-01-13] MEDS: IV NS 0.9% 1,000 ML IV PRN (06:02)
--- NOTE | 2017-01-13 06:37 | NUR ---
SUPERVISOR PRODUCTION DEPARTMENT NOTE PT IN BED ASLEEP, EASILY AROUSABLE. NO DISTRESS OR DISCOMFORT NOTED. DENIES PAIN. IVF NS INFUSING AT 75 ML/HR, NO S/S OF INFILTRATION NOTED. ON TELE SR WITH 1ST DEGREE AV BLOCK HR 78. ALL NEEDS ATTENDED. SIDE RAILS UP X 3 AND CALL LIGHT WITHIN REACH. WILL ENDORSE TO DAYS SHIFT NURSE FOR CONTINUE TO CARE.
[2017-01-13 08:00] VITALS: BP 161/69
[2017-01-13] MEDS: DOCUSATE SODIUM 250 MG CAPSULE PO SCH ×2 (08:55→16:46)
[2017-01-13] MEDS: TOLTERODINE 2 MG TABLET PO SCH (08:56)
[2017-01-13] MEDS: POLYETHYLENE GLYCOL 3350 17 GM POWD.PACK PO SCH (08:56)
[2017-01-13] MEDS: PREGABALIN 25 MG CAPSULE PO SCH (08:56)
[2017-01-13] MEDS: MELOXICAM 7.5 MG TABLET PO SCH (08:56)
[2017-01-13] MEDS: POTASSIUM CHLORIDE 20 MEQ TAB.PRT.SR PO SCH (08:57)
[2017-01-13] MEDS: MEMANTINE HCL 5 MG TABLET PO SCH ×2 (08:57→16:46)
[2017-01-13] MEDS: LIDOCAINE 5% (PATCH) 1 EA PATCH TP SCH (08:57)
[2017-01-13] MEDS: HYDROCODONE/APAP 10/325MG 1 EA TABLET PO SCH ×2 (08:57→16:46)
[2017-01-13] MEDS: CLOPIDOGREL BISULFATE 75 MG TABLET PO SCH (08:57)
[2017-01-13] MEDS: FAMOTIDINE (20 MG) 20 MG TABLET PO SCH ×2 (08:57→21:41)
[2017-01-13] MEDS: TAMSULOSIN 0.4 MG CAP.SR.24H PO SCH (08:57)
[2017-01-13] MEDS: LOSARTAN POTASSIUM 50 MG TABLET PO SCH (08:58)
[2017-01-13] MEDS: REPAGLINIDE 2 MG TABLET PO SCH ×2 (11:33→16:47)
[2017-01-13 12:00] VITALS: BP 144/76
[2017-01-13 16:00] VITALS: BP 125/60
--- NOTE | 2017-01-13 18:54 | NUR ---
RN CLOSING NOTES NO SIGNIFICANT CHANGES DURING AM SHIFT. NO COMPLAINTS OF PAIN, SINUS TELE ON MONITOR WITH 1ST DEGREE, ON 2LPM O2 VIA NASAL CANNULA, SATURATING WELL. KEPT PT CLEAN AND DRY, ASSISTED PT WITH ADLS, ON REGULAR DIET AND EATING WELL, L HAND IV SITE IS PATENT NO S/SX OF INFECTION/INFILTRATION NOTED. D/C PLANNING IN AM. ALL MEDS GIVENS ORDERED AND PT TOLERATED IT WELL, CALL LIGHT WITHIN REACH, WILL ENDORSED TO PM NURSE FOR CONTINUATION OF CARE.
--- NOTE | 2017-01-13 19:20 | NUR ---
RN INITIAL NOTES PATIENT, AWAKE AND ALERT, NO APPARENT DISTRESS. PATIENT DENIES ANY PAIN AND DISCOMFORT. ON O2 2LPM VIA NC. SR REVEALS ON TELE MONITOR. PATIENT DENIES ANY PAIN AND DISCOMFORT AT THIS TIME. WITH L HAND G20 RUNNING WITH NS @ 75 CC/HR INTACT AND PATENT. SAFETY AND COMFORT ENSURED. BED IN LOW AND LOCKED POSITION. CALL LIGHT IN REACH. WILL MONITOR CLOSELY.
[2017-01-13 20:00] VITALS: BP 136/69
[2017-01-13] MEDS: ATORVASTATIN 10 MG TABLET PO SCH (21:41)
[2017-01-13] MEDS: QUETIAPINE FUMARATE 25 MG TABLET PO SCH (21:41)
[2017-01-13] MEDS: LORAZEPAM 0.5 MG TABLET PO SCH (21:41)
[2017-01-13] MEDS: DONEPEZIL 5 MG TABLET PO SCH (21:41)
[2017-01-13] MEDS: ENOXAPARIN SODIUM 30 MG/0.3 ML DISP.SYRIN SQ SCH (21:45)
[2017-01-13] MEDS: DULOXETINE HCL 20 MG CAPSULE.DR PO SCH (21:48)
[2017-01-14] VITALS: BP 158/73
[2017-01-14 04:00] VITALS: BP 165/69
[2017-01-14] MEDS: IV NS 0.9% 1,000 ML IV PRN (05:18)
--- NOTE | 2017-01-14 07:20 | NUR ---
RN NOTES PT ASLEEP WELL ON BED. REMAINED IN STABLE CONDITION. AFEBRILE. ALL DUE MEDS TOLERATED WELL. INCONTINENT CARE RENDERED. KEPT CLEAN AND DRY. ENDORSED CONTINUITY OF CARE TO AM NURSE.
--- NOTE | 2017-01-14 07:28 | NUR ---
RN NOTES RECEIVED PT FROM JEWELRY CASTING MODEL MAKER IN STABLE CONDITION RESTING IN BED COMFORTABLY. A&OX3, ON 2L NASAL CANNULA NO SOB OR DISTRESS NOTED. SR ON THE TELE MONITOR HR IN THE 60S. L HAND 20 GAUGE IV SITE DRY AND INTACT WITH NS @ 75ML/HR. SIDE RAILS UPX3, CALL LIGHT WITHIN REACH, BED LOCKED AND IN LOWEST POSITION WILL CONT TO MONITOR.
[2017-01-14 08:00] VITALS: BP 185/85
[2017-01-14] MEDS: POLYETHYLENE GLYCOL 3350 17 GM POWD.PACK PO SCH (08:15)
[2017-01-14] MEDS: LIDOCAINE 5% (PATCH) 1 EA PATCH TP SCH (08:15)
[2017-01-14] MEDS: HYDROCODONE/APAP 10/325MG 1 EA TABLET PO SCH ×2 (08:16→16:06)
[2017-01-14] MEDS: REPAGLINIDE 2 MG TABLET PO SCH ×2 (08:16→16:07)
[2017-01-14] MEDS: CLOPIDOGREL BISULFATE 75 MG TABLET PO SCH (08:16)
[2017-01-14] MEDS: TOLTERODINE 2 MG TABLET PO SCH (08:16)
[2017-01-14] MEDS: TAMSULOSIN 0.4 MG CAP.SR.24H PO SCH (08:16)
[2017-01-14] MEDS: FAMOTIDINE (20 MG) 20 MG TABLET PO SCH ×2 (08:17→21:39)
[2017-01-14] MEDS: LOSARTAN POTASSIUM 50 MG TABLET PO SCH (08:17)
[2017-01-14] MEDS: DOCUSATE SODIUM 250 MG CAPSULE PO SCH ×2 (08:17→16:05)
[2017-01-14] MEDS: MEMANTINE HCL 5 MG TABLET PO SCH ×2 (08:17→16:07)
[2017-01-14] MEDS: MELOXICAM 7.5 MG TABLET PO SCH (08:18)
[2017-01-14] MEDS: POTASSIUM CHLORIDE 20 MEQ TAB.PRT.SR PO SCH (08:18)
[2017-01-14 16:00] VITALS: BP 159/65
--- NOTE | 2017-01-14 17:50 | NUR ---
01/14/17 AWAITING FOR BED AT [facility], ARRANGED TRANSPORTATION VIA [facility] ON WILL CALL, NURSE TO CALL REPORT TO [phone] ONCE BED IS AVAILABLE. Addendum: 01/14/17 at 1750 by HANNAH LAGUERRE CMG Amended: Links added.
--- NOTE | 2017-01-14 18:47 | NUR ---
RN NOTES PT RESTING IN BED, NO DISTRESS OR SOB NOTED. PT IN STABLE CONDITION, NO SIGNIFICANT CHANGES THROUGHOUT MY SHIFT. PT STILL AWAITING PLACEMENT FOR REHAB CENTER. SIDE RAILS UPX3, CALL LIGHT WITHIN REACH, BED LOCKED AND IN LOWEST POSITION WILL ENDORSE TO ONCOMING SHIFT.
[2017-01-14 20:00] VITALS: BP 153/64
[2017-01-14] MEDS: QUETIAPINE FUMARATE 25 MG TABLET PO SCH (21:39)
[2017-01-14] MEDS: DONEPEZIL 5 MG TABLET PO SCH (21:39)
[2017-01-14] MEDS: DULOXETINE HCL 20 MG CAPSULE.DR PO SCH (21:39)
[2017-01-14] MEDS: ATORVASTATIN 10 MG TABLET PO SCH (21:39)
[2017-01-14] MEDS: ENOXAPARIN SODIUM 30 MG/0.3 ML DISP.SYRIN SQ SCH (21:42)
[2017-01-14] MEDS: LORAZEPAM 0.5 MG TABLET PO SCH (21:42)
[2017-01-15 04:00] VITALS: BP 160/64
[2017-01-15] MEDS: IV NS 0.9% 1,000 ML IV PRN (05:39)
--- NOTE | 2017-01-15 07:19 | NUR ---
RN NOTES PT ASLEEP WELL ON BED. BREATHING EVEN AND UNLABORED. DENIES PAIN. AFEBRILE. INCONTINENT CARE RENDERED. ALL DUE MEDICINE GIVEN AND TOLERATED WELL. NO SIGNIFICANT KALLI THROUGHOUT THE SHIFT. STILL AWAITING FOR THE PLACEMENT.
--- NOTE | 2017-01-15 07:20 | NUR ---
MS RN INITIAL NOTES: REC'D PT ASLEEP, NOT IN ANY DISTRESS, A/O X3, EASILY AROUSABLE. ON O2 AT 2LPM/NC, NO SOB. HAS L HAND G20, SL, FLUSHED, PATENT & INTACT W/ NO S/SX OF INFECTION/ INFILTRATION NOTED. PROVIDED COMFORT & SAFETY MEASURES. CALL LIGHT PLACED W/IN REACH. BED KEPT LOW & IN LOCKED POS. WILL CONTINUE TO MONITOR.
[2017-01-15 08:00] VITALS: BP 154/64
[2017-01-15] MEDS: POLYETHYLENE GLYCOL 3350 17 GM POWD.PACK PO SCH (08:25)
[2017-01-15] MEDS: TOLTERODINE 2 MG TABLET PO SCH (08:26)
[2017-01-15] MEDS: MELOXICAM 7.5 MG TABLET PO SCH (08:26)
[2017-01-15] MEDS: POTASSIUM CHLORIDE 20 MEQ TAB.PRT.SR PO SCH (08:26)
[2017-01-15] MEDS: DOCUSATE SODIUM 250 MG CAPSULE PO SCH (08:26)
[2017-01-15] MEDS: TAMSULOSIN 0.4 MG CAP.SR.24H PO SCH (08:26)
[2017-01-15] MEDS: MEMANTINE HCL 5 MG TABLET PO SCH (08:26)
[2017-01-15] MEDS: CLOPIDOGREL BISULFATE 75 MG TABLET PO SCH (08:26)
[2017-01-15] MEDS: REPAGLINIDE 2 MG TABLET PO SCH (08:26)
[2017-01-15] MEDS: FAMOTIDINE (20 MG) 20 MG TABLET PO SCH (08:26)
[2017-01-15] MEDS: LOSARTAN POTASSIUM 50 MG TABLET PO SCH (08:27)
[2017-01-15] MEDS: HYDROCODONE/APAP 10/325MG 1 EA TABLET PO SCH (08:28)
[2017-01-15] MEDS: LIDOCAINE 5% (PATCH) 1 EA PATCH TP SCH (09:29)
[2017-01-15] MEDS ORDERED: PREGABALIN 25 MG CAPSULE PO SCH (10:06)
[2017-01-15 16:00] VITALS: BP 140/68
--- NOTE | 2017-01-15 16:30 | NUR ---
MS CREDIT RISK MODELER NOTES: PT DC'D TO [facility] UNIT ORDERED. DC DOCUMENTS AND PT'S BELONGINGS GIVEN TO MARTY EMT. REPORT GIVEN TO YI RUIZ. PT UNABLE TO SIGN DC DOCUMENTS & BELONGING LIST DUE TO WEAKNESS, COSIGNED W/ CO-RN. SKIN IS INTACT, NO WOUNDS NOTED. Z-GUARD APPLIED ON BUTTOCKS, DIAPER CHANGED PRIOR TO DC. PT STILL C/O R SHOULDER PAIN UPON MOVEMENT, DUE PAIN MEDICATIONS GIVEN. IV ACCESS ON L HAND REMOVED, PRESSURE DRESSING APPLIED, NO INFECTION NOTED. ID BAND REMOVED. PT LEFT FACILITY IN STABLE CONDITION VIA DANISHA, A/O X3, ACCOMPANIED BY WRAPPER SIZER. NO CONCERNS IDENTIFIED UPON DC.
== END 2017-01-15 17:01 | DRG 640 ==
LOC: ER 09:47 → MEDSG1 12:19 → TELE1 12:45 → MEDSG1 01-14 08:48
PROVIDERS: ADMIT Internal Medicine; ATTEND Internal Medicine
DX: E86.0 Dehydration (principal); G93.41 Metabolic encephalopathy; E11.40 Type 2 diabetes mellitus with diabetic neuropathy, unspecified; I11.0 Hypertensive heart disease with heart failure; I50.9 Heart failure, unspecified; D64.9 Anemia, unspecified; E78.5 Hyperlipidemia, unspecified; I25.10 Atherosclerotic heart disease of native coronary artery without angina pectoris; S40.011A Contusion of right shoulder, initial encounter; W19.XXXA Unspecified fall, initial encounter; Z86.73 Personal history of transient ischemic attack (TIA), and cerebral infarction without residual deficits; Z87.891 Personal history of nicotine dependence; Z79.899 Other long term (current) drug therapy; N39.41 Urge incontinence; Y93.9 Activity, unspecified; Y92.89 Other specified places as the place of occurrence of the external cause; Y99.9 Unspecified external cause status
CPT/HCPCS: 36415; 71010-TC; 73020; 80048-TC; 80076-TC; 83735-TC; 84100-TC; 84484-TC; 85025-TC; 85730-TC; 87081-TC; 93307-TC; 94799-TC; 97112-TC; 97530-TC; A4606; A6402; J1650; J2270; J2405; J7030; Z7610

== ENCOUNTER 2017-11-06 20:32 | Emergency (ER) | payer MEDICARE, BC ==
[~2017-11-06] VITALS: Ht 170.2 cm; Wt 74.4 kg
[~2017-11-06 20:32] MED LIST changes: -ASCO500T9 PO; +BISA10SU8 RC; -CALC500T52 PO; +CLOP75TA15 PO; -CLOP75TA2 PO; -CLOT10TR PO; +DOCU250C14 PO; -DOCU250C75 PO; +DONE5TAB34 PO; -GLUC500T12 PO; +MELO-107 PO; -MELO-264 PO; +METO-295 PO; -MULT-24 PO; +NALO25TA PO; +ONDA4TAB10 PO; -ONDA4TAB5 PO; +SACC250C PO; -SACC250C6 PO; -VENL75CA56 PO; -VITA200C5 PO
[2017-11-06 21:07] LABS: BASOPHILS # (AUTO) 0.1 /CMM (0.0-0.2); BASOPHILS % (AUTO) 0.7 % (0.0-2.0); EOSINOPHILS % (AUTO) 1.7 % (0.0-6.0); HEMATOCRIT 37 % (33-45); HEMOGLOBIN 13.2 g/dL (11.5-14.8); LYMPHOCYTES # (AUTO) 1.9 /CMM (0.8-4.8); LYMPHOCYTES % (AUTO) 18.8 % (20.0-44.0); MEAN CORPUSCULAR HEMOGLOBIN 33 PG (26.0-33.0); MEAN CORPUSCULAR HGB CONC 36 g/dl (31.0-36.0); MEAN CORPUSCULAR VOLUME 92 fL (82-100); MONOCYTES # (AUTO) 0.7 /CMM (0.1-1.30); MONOCYTES % (AUTO) 6.8 % (2.0-12.0); NEUTROPHILS # (AUTO) 7.1 /CMM (1.8-8.9); PLATELET COUNT (AUTO) 227 /CMM (150-450); RED BLOOD CELL COUNT(AUTO) 4.04 MIL/uL (4.0-5.2)
[2017-11-06 21:18] LABS: CALCIUM, SERUM 8.8 mg/dL (8.5-10.1); CARBON DIOXIDE 32 mmol/L (21-32); CHLORIDE 103 mmol/L (98-107); CREATININE 0.6 mg/dL (0.6-1.3); GLUCOSE 138 mg/dL (74-106); POTASSIUM 3.3 mmol/L (3.5-5.1); SODIUM SERUM 140 mmol/L (136-145); UREA NITROGEN, BLOOD 13 mg/dL (7-18)
[2017-11-06 21:25] LABS: TROPONIN I < 0.017 ng/mL (0.00-0.056)
[2017-11-06 21:28] LABS: INR 0.95 (0.85-1.15)
[2017-11-06 21:30] LABS: B-TYPE NATRIURETIC PEPTIDE 228 PG/ML (0-125)
[2017-11-07 00:48] VITALS: BP 148/76
== END 2017-11-07 00:50 ==
LOC: ER 20:37
DX: R06.02 Shortness of breath (principal); E87.6 Hypokalemia; I10 Essential (primary) hypertension; E11.9 Type 2 diabetes mellitus without complications; F32.9 Major depressive disorder, single episode, unspecified; G89.29 Other chronic pain; F03.90 Unspecified dementia, unspecified severity, without behavioral disturbance, psychotic disturbance, mood disturbance, and anxiety; Z86.73 Personal history of transient ischemic attack (TIA), and cerebral infarction without residual deficits; E78.00 Pure hypercholesterolemia, unspecified; Z88.1 Allergy status to other antibiotic agents; Z91.018 Allergy to other foods; Z88.8 Allergy status to other drugs, medicaments and biological substances
CPT/HCPCS: 36415; 71045; 80048; 83880; 84484; 85025; 85730; 93005; 99285; A4606; A6403; Z7610

== ENCOUNTER 2018-05-08 17:55 | Emergency (ER) | END 2018-05-08 18:41 | disposition home or self-care (01) | DX: L73.8 Other specified follicular disorders (principal); R21 Rash and other nonspecific skin eruption; I10 Essential (primary) hypertension; F03.90 Unspecified dementia, unspecified severity, without behavioral disturbance, psychotic disturbance, mood disturbance, and anxiety; E11.9 Type 2 diabetes mellitus without complications; M48.061 Spinal stenosis, lumbar region without neurogenic claudication; G89.29 Other chronic pain; F31.9 Bipolar disorder, unspecified; E78.00 Pure hypercholesterolemia, unspecified; Z86.73 Personal history of transient ischemic attack (TIA), and cerebral infarction without residual deficits; Z88.1 Allergy status to other antibiotic agents; Z95.5 Presence of coronary angioplasty implant and graft; Z91.048 Other nonmedicinal substance allergy status; Z91.018 Allergy to other foods ==

== ENCOUNTER 2018-05-22 15:38 | Inpatient (IN) | payer MEDICARE, BC ==
[~2018-05-22] VITALS: Ht 162.6 cm; Wt 59.0 kg
[~2018-05-22 15:38] MED LIST changes: +DULO30CA2 PO; +HYDR-4354 PO; -HYDR-548 PO; -LOSA50TA21 PO; +LOSA50TA39 PO
--- NOTE | 2018-05-22 15:50 | NUR ---
PT BIB [facility] "from [facility] Generalized weakness and abdominal pain. PT IS AAOX2, NOT IN RESPIRATORY DISTRESS, V/S STABLE, KEPT RESTED AND COMFORTABLE.
[2018-05-22] MEDS ORDERED: IPRA3AMP23 IH (16:02)
--- NOTE | 2018-05-22 16:10 | NUR ---
PT LABS DRAWNED AND SENT TO LABS. AWAITING RESULTS.
[2018-05-22] MEDS ORDERED: IV NS 0.9% 1,000 ML BAG IV ONE (16:30)
[2018-05-22 16:33] LABS: BASOPHILS # (AUTO) 0.1 /CMM (0.0-0.2); BASOPHILS % (AUTO) 0.9 % (0.0-2.0); HEMATOCRIT 38 % (33-45); HEMOGLOBIN 13.4 g/dL (11.5-14.8); LYMPHOCYTES # (AUTO) 1.8 /CMM (0.8-4.8); LYMPHOCYTES % (AUTO) 18.1 % (20.0-44.0); MEAN CORPUSCULAR HGB CONC 35 g/dl (31.0-36.0); MEAN CORPUSCULAR VOLUME 94 fL (82-100); MONOCYTES # (AUTO) 0.7 /CMM (0.1-1.30); MONOCYTES % (AUTO) 6.8 % (2.0-12.0); NEUTROPHILS % (AUTO) 72.2 % (43.0-81.0); PLATELET COUNT (AUTO) 257 /CMM (150-450); RED BLOOD CELL COUNT(AUTO) 4.09 MIL/uL (4.0-5.2); WHITE BLOOD COUNT (AUTO) 9.8 K/uL (4.3-11.0)
[2018-05-22 16:42] LABS: CALCIUM, SERUM 8.8 mg/dL (8.5-10.1); CARBON DIOXIDE 34 mmol/L (21-32); CHLORIDE 104 mmol/L (98-107); CREATININE 0.5 mg/dL (0.6-1.3); GLUCOSE 138 mg/dL (74-106); POTASSIUM 3.4 mmol/L (3.5-5.1); SODIUM SERUM 139 mmol/L (136-145); UREA NITROGEN, BLOOD 11 mg/dL (7-18)
[2018-05-22 16:47] LABS: ALANINE AMINOTRANSFERASE 13 U/L (12-78); ALBUMIN 3.3 g/dL (3.4-5.0); ALCOHOL, BLOOD < 3 mg/dL (0-0); ALKALINE PHOSPHATASE 64 U/L (46-116); ASPARTATE AMINOTRANSFERASE 15 U/L (15-37); BILIRUBIN,DIRECT 0.1 mg/dL (0.0-0.2); BILIRUBIN,TOTAL 0.7 mg/dL (0.2-1.0); TOTAL PROTEIN, SERUM 6.2 g/dL (6.4-8.2)
[2018-05-22] MEDS ORDERED: IOHEXOL-300 100 ML VIAL IV ONE (16:56)
[2018-05-22] MEDS ORDERED: IV NS 0.9% 250 ML IV ONE (16:56)
[2018-05-22] MEDS ORDERED: CT SWABBABLE VALVE TRANS SET 1 EA INFUS.SET MC ONE (16:56)
--- NOTE | 2018-05-22 17:05 | NUR ---
URINE SPECIMEN COLLECTED AND SENT TO LAB. AWAITING RESULT.
[2018-05-22 17:06] LABS: APPEARANCE,URINE Clear (CLEAR); BILIRUBIN,URINE Negative (NEGATIVE); BLOOD, URINE Negative Ery/uL (NEGATIVE); COLOR,URINE Yellow (YELLOW); KETONES,URINE Negative (NEGATIVE); LEUKOCYTE ESTERASE ,URINE Negative (NEGATIVE); NITRITE, URINE Negative (NEGATIVE); PROTEIN,URINE Negative (NEGATIVE); UGLUCOSE Negative (NEGATIVE); UROBILINOGEN,URINE 0.2 EU/dL (0.2)
--- NOTE | 2018-05-22 17:22 | NUR ---
PT IS WHEELED TO CT SCAN VIA [facility].
--- NOTE | 2018-05-22 17:45 | NUR ---
PT IS BACK FROM THE CT SCAN. AWAITING RESULT.
--- NOTE | 2018-05-22 17:57 | NUR ---
CALLED MIN FOR READ ON CT SCANS
--- NOTE | 2018-05-22 19:10 | NUR ---
ASSUMED CARE OF PT. PT STATED THAT SHE FELT COLD. PT REC'D 2 NEW WARM BLANKETS. PT IS ON THE MONITOR AND CONTINUOUS PULSE OX.
--- NOTE | 2018-05-22 19:28 | NUR ---
REPORT GIVEN TO YI GAITAN FOR KALLI. AWAITING ROOM FOR ADMISSION.
[2018-05-22] MEDS ORDERED: ONDANSETRON HCL/PF 4 MG/2 ML VIAL IVP PRN (20:30)
[2018-05-22] MEDS ORDERED: ACETAMINOPHEN 650 MG/SUPP.RECT RC PRN (20:30)
--- NOTE | 2018-05-22 20:40 | NUR ---
CALLING REPORT TO TELE NURSE.
[2018-05-22 21:05] VITALS: BP 134/84
--- NOTE | 2018-05-22 21:30 | NUR ---
FARM CONSULTANT NOTES RECEIVED PT FROM ED. PT AWAKE AND AND ALERT X1, WITH PERIODS OF CONFUSION. PT PLACED ON TELE MONITOR, SR WITH HR OF 63. RASH NOTED ON PT BODY, PICS TAKEN. PT HAS A #20 G IN R FA WITH 0.9NS @ 75 MLS/HR. ALL SAFETY PRECAUTIONS TAKEN, BED IN THE LOCKED AND LOWEST POSITION, SR UP X3. WILL CONT TO MONITOR.
[2018-05-22] MEDS: ATORVASTATIN 10 MG TABLET PO SCH (22:06)
[2018-05-22] MEDS: ENOXAPARIN SODIUM 40 MG/0.4 ML DISP.SYRIN SQ SCH (22:06)
[2018-05-22] MEDS: IV NS 0.9% 1,000 ML IV PRN (22:45)
[2018-05-23] VITALS: BP 159/87
[2018-05-23] MEDS ORDERED: POTASSIUM CHLORIDE 20 MEQ TAB.PRT.SR PO ONE (00:30)
[2018-05-23 04:00] VITALS: BP 161/84
--- NOTE | 2018-05-23 06:59 | NUR ---
RN CLOSING NOTES NO CHANGE IN PTS CONDITION OVERNIGHT. CALLED SNF TO VERIFY CODE STATUS AND FLU AND PNA, WILL ENDORSE FOR AM RN TO CALL BACK. WILL ENDORSE TO AM RN FOR KALLI.
--- NOTE | 2018-05-23 07:00 | NUR ---
ASSEMBLER INSTALLER STRUCTURES OPENING NOTES RECEIVED PT LYING ON BED.ALERT/ORIENTED X1 WITH CONFUSED .ON TELE HR 70'S IS WITH SR.ON ROOM AIR,TOLERATING WELL.NO SOB AND ACUTE DISTRESS NOTED.RASHES SEEN ON LEFT ALAMO,ON CONTACT ISOLATION FOR PRECAUTION.IV LINE IS ON RIGHT FA G10,SITE IS CLEAN DRY AND INTACT.NO INFILTRATION NOTED.SAFETY IS MAINTAINED AT ALL TIMES.BED IS IN LOW POSITION AND LOCKED.CALL LIGHT IS WITHIN REACH.WILL CONTINUE TO MONITOR THE PT CLOSELY.
[2018-05-23 08:00] VITALS: BP 125/85
[2018-05-23] MEDS: DOCUSATE SODIUM 250 MG CAPSULE PO SCH ×2 (09:08→16:49)
[2018-05-23] MEDS: PANTOPRAZOLE 40 MG VIAL IV SCH (09:08)
[2018-05-23] MEDS: CLOPIDOGREL BISULFATE 75 MG TABLET PO SCH (09:08)
[2018-05-23] MEDS: REPAGLINIDE 2 MG TABLET PO SCH ×2 (09:10→16:49)
[2018-05-23] MEDS: TOLTERODINE 2 MG CAP.SR PO SCH (09:11)
[2018-05-23 11:01] LABS: BASOPHILS # (AUTO) 0.1 /CMM (0.0-0.2); BASOPHILS % (AUTO) 0.6 % (0.0-2.0); EOSINOPHILS % (AUTO) 1.6 % (0.0-6.0); HEMATOCRIT 35 % (33-45); HEMOGLOBIN 12.4 g/dL (11.5-14.8); LYMPHOCYTES # (AUTO) 1.1 /CMM (0.8-4.8); LYMPHOCYTES % (AUTO) 12.8 % (20.0-44.0); MEAN CORPUSCULAR HGB CONC 35 g/dl (31.0-36.0); MEAN CORPUSCULAR VOLUME 93 fL (82-100); MONOCYTES # (AUTO) 0.7 /CMM (0.1-1.30); MONOCYTES % (AUTO) 7.9 % (2.0-12.0); NEUTROPHILS # (AUTO) 6.9 /CMM (1.8-8.9); NEUTROPHILS % (AUTO) 77.1 % (43.0-81.0); PLATELET COUNT (AUTO) 213 /CMM (150-450); RED BLOOD CELL COUNT(AUTO) 3.79 MIL/uL (4.0-5.2)
[2018-05-23 11:19] LABS: CALCIUM, SERUM 8.3 mg/dL (8.5-10.1); CARBON DIOXIDE 29 mmol/L (21-32); CHLORIDE 104 mmol/L (98-107); CREATININE 0.5 mg/dL (0.6-1.3); GLUCOSE 133 mg/dL (74-106); MAGNESIUM 1.6 mg/dL (1.8-2.4); PHOSPHORUS 2.5 mg/dL (2.5-4.9); POTASSIUM 3.2 mmol/L (3.5-5.1); SODIUM SERUM 140 mmol/L (136-145); UREA NITROGEN, BLOOD 8 mg/dL (7-18)
[2018-05-23 11:28] LABS: CHOLESTEROL 228 mg/dL (<200); HDL CHOLESTEROL 56 mg/dL (40-60); LDL 143 mg/dL (0-99); THYROID STIMULATING HORMONE 0.405 uIU/mL (0.358-3.74); TRIGLYCERIDES 120 mg/dL (30-150)
[2018-05-23 12:00] VITALS: BP 120/61
[2018-05-23] MEDS: IV NS 0.9% 1,000 ML IV PRN (15:17)
--- NOTE | 2018-05-23 15:45 | NUR ---
SALES REPRESENTATIVE RURAL POWER NOTES CALLED THE [facility] AND VERIFIED WITH HAZEL CRABTREE ABOUT VACCINATION STATUS AND CODE STATUS.PT IS ALLERGIC TO FLU VACCINE AND HAS TAKEN PNA VACCINE ON FEB 23 2018 AND WITH FULL CODE.
[2018-05-23 16:00] VITALS: BP 129/64
--- NOTE | 2018-05-23 18:00 | NUR ---
ASSEMBLER LEATHER GOODS NOTES MG IS 1.6,REPORTED TO SENIOR REPORT DEVELOPER [place],NNO NOTED.
--- NOTE | 2018-05-23 18:49 | NUR ---
FABRICATOR SPECIAL ITEMS CLOSING NOTES PT IS LYING ON BED.ALERT/ORIENTED X1 WITH CONFUSION.DVT PUMP IS ON.PM MEDS ARE GIVEN.RESPIRATION IS EVEN AND NONLABORED WITH ROOM AIR,TOLERATING WELL.ENDORSED TO MIXING TUMBLER OPERATOR RN FOR KALLI.
--- NOTE | 2018-05-23 18:52 | NUR ---
TEAM ASSEMBLY LINE MACHINE OPERATOR NOTES FARA STUBBS ORDERED TO GIVE IV MG 1GM X1 FOR MG 1.6.NEW ORDERS NOTED AND CARRIED OUT.
[2018-05-23] MEDS ORDERED: Magnesium 1GM/D5W 100ML PREMIX PIGGYBACK IV ONE (19:00)
[2018-05-23] MEDS ORDERED: MGSO4/D5W 100 ML IV SCH (19:00)
[2018-05-23 20:00] VITALS: BP 152/72
--- NOTE | 2018-05-23 20:00 | NUR ---
RECIEVED ALERT TO NURSE AT THE BEDSIDE CONFUSED OF THE SITUATION. NOTED MOUTH TOMGUE CONSTANT MOVEMENT.
[2018-05-23] MEDS: ENOXAPARIN SODIUM 40 MG/0.4 ML DISP.SYRIN SQ SCH (21:10)
[2018-05-23] MEDS: ATORVASTATIN 10 MG TABLET PO SCH (21:11)
--- NOTE | 2018-05-23 22:07 | NUR ---
HAYLEE HERE TO SUDHA Addendum: 05/23/18 at 2236 by ERICH ARZOLA RN WRONG PATIENT
[2018-05-24 04:00] VITALS: BP 151/83
--- NOTE | 2018-05-24 05:12 | NUR ---
ENDING NOTES: AWAKE MOST OF THIS 12 HOUR SHIFT, WATCHING TV. SHE WILL ACKNOWLEDGE THE NURSE WHEN A NURSE WALKS INTO THE ROOM. SHE BECOMES AGITATED EASILY WHEN NURSE LOOKING AT HER IV SITE OR NEEDING TO REPOSITION HER, SHE WILL TELL US " GET OUT" OR "LEAVE ME ALONE I DONT APPROVE OF THIS". NO SOB THIS 12 HOUR NO EDEMA NOTED.
[2018-05-24] MEDS: IV NS 0.9% 1,000 ML IV PRN (06:24)
[2018-05-24 08:00] VITALS: BP 176/63
[2018-05-24] MEDS: DOCUSATE SODIUM 250 MG CAPSULE PO SCH ×2 (09:29→17:25)
[2018-05-24] MEDS: CLOPIDOGREL BISULFATE 75 MG TABLET PO SCH (09:29)
[2018-05-24] MEDS: PANTOPRAZOLE 40 MG VIAL IV SCH (09:29)
[2018-05-24] MEDS: TOLTERODINE 2 MG CAP.SR PO SCH (09:30)
[2018-05-24] MEDS: REPAGLINIDE 2 MG TABLET PO SCH ×2 (09:30→17:25)
[2018-05-24 12:00] VITALS: BP 161/71
[2018-05-24 16:00] VITALS: BP 111/63
--- NOTE | 2018-05-24 19:32 | NUR ---
MS RN NOTE PATIENT RECEIVED IN BED A/0 X1. PATIENT AWAKE WATCHING TV NO S/S OF DISTRESS. PATIENT DENIES PAIN/ CHEST PAIN/ . BREATHING EVEN AND UNLABORED. PATIENT STABLE AT THIS TIME. RN WILL CONTINUE TO MONITOR AND PROVIDE CARE ORDERED.
[2018-05-24 20:00] VITALS: BP 151/65
[2018-05-24] MEDS: ENOXAPARIN SODIUM 40 MG/0.4 ML DISP.SYRIN SQ SCH (20:06)
[2018-05-24] MEDS: ATORVASTATIN 10 MG TABLET PO SCH (21:09)
[2018-05-25] VITALS: BP 151/65
[2018-05-25 04:00] VITALS: BP 157/63
[2018-05-25 08:00] VITALS: BP_SYST 178; BP_SYST 184; BP_DIAS 63; BP_DIAS 80
--- NOTE | 2018-05-25 08:00 | NUR ---
RN AM SHIFT NOTE RECEIVED PATIENT FROM NIGHT NURSE, IN BED ASLEEP, VITALS WNL, IV PATENT AND INTACT, LEFT ANTICUBITAL SITE, CONTACT ISOLATION IN PLACE, RED RASH NOTED ON BLE, DR STUBBS SAW PATIENT DERMATITIS AND TO APPLY LOTION, APPETITE IS POOR NEEDS ASSIST, GRAM POSITIVE BLOOD CULTURE NOTED, BLOOD CULTURE TO BE REPEATED, NO F/C, PATIENT IS LETHARGIC,
[2018-05-25] MEDS: PANTOPRAZOLE 40 MG VIAL IV SCH (08:40)
[2018-05-25] MEDS: REPAGLINIDE 2 MG TABLET PO SCH ×2 (08:40→17:50)
[2018-05-25] MEDS: CLOPIDOGREL BISULFATE 75 MG TABLET PO SCH (08:41)
[2018-05-25] MEDS: TOLTERODINE 2 MG CAP.SR PO SCH (08:41)
[2018-05-25] MEDS: DOCUSATE SODIUM 250 MG CAPSULE PO SCH ×2 (08:41→17:51)
[2018-05-25] MEDS ORDERED: hydrALAZINE HCL IV 20 MG VIAL IV PRN (10:00)
--- NOTE | 2018-05-25 10:19 | NUR ---
WOUND CARE CONSULT: PT PRESENTS WITH INCONTINENCE AND BREASTFOLD RASH, BILATERAL LOWER LEG RASH, ALL PRESENT ON ADMISSION. LOWER LEG RASH UNKNOWN ETIOLOGY. DEFER TO MD FOR LOWER LEGS. RECOMMENDATIONS MADE FOR SKIN PROTECTION AND CARE. DISCUSSED WITH NURSING STAFF. LOW AIRLOSS BED TO BE PLACED (SHILOH ISOFLEX ). CURRENT BRO SCORE IS 12. Addendum: 05/25/18 at 1022 by GAURI PRADO WNDNU Amended: Links added.
[2018-05-25] MEDS ORDERED: Z GUARD REMEDY 2 OZ OINT TP PRN (10:30)
[2018-05-25] MEDS: Z GUARD REMEDY 2 OZ OINT TP SCH (11:11)
[2018-05-25] MEDS: CLONIDINE HCL 0.1 MG TABLET PO PRN (11:22)
[2018-05-25] MEDS: IV NS 0.9% 1,000 ML IV PRN (11:29)
[2018-05-25 12:00] VITALS: BP 139/73
[2018-05-25] MEDS ORDERED: FEE PK DOSING 1 MIN EA MC ONE (12:15)
[2018-05-25] MEDS: VANCOMYCIN 1 GM in IV D5W 250 ML IV SCH (13:21)
[2018-05-25 14:09] LABS: BASOPHILS # (AUTO) 0.1 /CMM (0.0-0.2); BASOPHILS % (AUTO) 0.6 % (0.0-2.0); EOSINOPHILS % (AUTO) 0.6 % (0.0-6.0); HEMATOCRIT 32 % (33-45); HEMOGLOBIN 11.4 g/dL (11.5-14.8); MEAN CORPUSCULAR HGB CONC 35 g/dl (31.0-36.0); MEAN CORPUSCULAR VOLUME 92 fL (82-100); MONOCYTES # (AUTO) 0.6 /CMM (0.1-1.30); MONOCYTES % (AUTO) 6.1 % (2.0-12.0); NEUTROPHILS % (AUTO) 82.7 % (43.0-81.0); PLATELET COUNT (AUTO) 211 /CMM (150-450); RED BLOOD CELL COUNT(AUTO) 3.51 MIL/uL (4.0-5.2); WHITE BLOOD COUNT (AUTO) 9.7 K/uL (4.3-11.0)
[2018-05-25 14:20] LABS: ALANINE AMINOTRANSFERASE 10 U/L (12-78); ALBUMIN 2.9 g/dL (3.4-5.0); ALKALINE PHOSPHATASE 53 U/L (46-116); ASPARTATE AMINOTRANSFERASE 14 U/L (15-37); CALCIUM, SERUM 8.1 mg/dL (8.5-10.1); CARBON DIOXIDE 26 mmol/L (21-32); CHLORIDE 104 mmol/L (98-107); CREATININE 0.4 mg/dL (0.6-1.3); GLUCOSE 130 mg/dL (74-106); MAGNESIUM 1.7 mg/dL (1.8-2.4); PHOSPHORUS 3.1 mg/dL (2.5-4.9); SODIUM SERUM 137 mmol/L (136-145); TOTAL PROTEIN, SERUM 5.3 g/dL (6.4-8.2); UREA NITROGEN, BLOOD 6 mg/dL (7-18)
[2018-05-25 14:23] LABS: POTASSIUM 2.5 mmol/L (3.5-5.1)
[2018-05-25 16:00] VITALS: BP 139/73
[2018-05-25] MEDS ORDERED: POTASSIUM CHLORIDE 10 MEQ TABLET.SA PO ONE (16:00)
[2018-05-25] MEDS ORDERED: MEGESTROL ACETATE 40 MG TABLET PO SCH (17:00)
[2018-05-25] MEDS: POTASSIUM CL. PREMIX PERIPHER. 50 ML IV SCH ×6 (17:50→23:50)
[2018-05-25] MEDS: CLOTRIMAZOLE 1% 15 GM TUBE TP SCH (17:51)
--- NOTE | 2018-05-25 19:20 | NUR ---
MEDSURG RN NOTE PATIENT RESTING IN BED IN STABLE CONDITION, SOME ANXIETY NOTED THROUGHOUT THE DAY. REORIENTED PATIENT FREQUENTLY AND OFFERED COMFORT AND COMPANY. POOR APPETITE NOTED, ROUNDING METAL BED ASSEMBLER AWARE. IV SITE ON LEFT HAND INTACT INFUSING FLUIDS ORDERED. BED IN LOW LOCKED POSITION, CALL LIGHT WITHIN REACH, SIDE RAILS UP, ENDORSED TO ETHOLOGIST NURSE FOR CONTINUITY OF CARE.
[2018-05-25 20:00] VITALS: BP 139/72
[2018-05-25] MEDS: HYDROCODONE/APAP 5/325MG 1 EACH TABLET PO PRN (21:09)
[2018-05-25] MEDS: ATORVASTATIN 10 MG TABLET PO SCH (21:10)
[2018-05-25] MEDS: ENOXAPARIN SODIUM 40 MG/0.4 ML DISP.SYRIN SQ SCH (21:16)
--- NOTE | 2018-05-25 22:58 | NUR ---
NURSE NOTES: PT NOTED WITH CRYING AND AND COMPLAIN OF PAIN ON LEFT ARM WHERE IV LINE IS LOCATED. IV SITE ASSESSED WITH NO SIGNS OF INFILTRATION OR INFECTION. MD NOTIFIED AND ORDERS RECEIVED FOR NORCO 5-325 Q 6 H PRN. NORCO ADMINISTERED AT 2108 AND PATIENT NOTED TO BE CALM AND PAIN FREE UPON REASSESSMENT
--- NOTE | 2018-05-25 23:30 | NUR ---
RN MS NOTES, RECEIVED PATIENT FROM [facility]I VINES FOR CONTINUITY OF CARE, PATIENT A/O TO SELF, AWAKE AT THIS TIME, NO SOB/ACUTE DISTRESS NOTED, IVF INFUSING WELL AND PATIENT TOLERATED WELL, ALSO THE FIFTH BAG OF KCL IV INFUSING AT THIS TIME, ENDORSED TO INFUSE THE LAST BAG, WILL ADMINISTER ORDER, WILL CONTINUE TO MONITOR CLOSELY. ALL SAFETY MEASURES IN PLACED, CALL LIGHT W/I REACH, S/R UP ORDERED.
[2018-05-26 04:00] VITALS: BP 141/64
[2018-05-26] MEDS: VANCOMYCIN 1 GM in IV D5W 250 ML IV SCH (06:03)
[2018-05-26 06:33] LABS: BASOPHILS # (AUTO) 0.1 /CMM (0.0-0.2); BASOPHILS % (AUTO) 0.4 % (0.0-2.0); EOSINOPHILS % (AUTO) 1.4 % (0.0-6.0); HEMATOCRIT 33 % (33-45); HEMOGLOBIN 11.6 g/dL (11.5-14.8); LYMPHOCYTES # (AUTO) 1.5 /CMM (0.8-4.8); LYMPHOCYTES % (AUTO) 12.3 % (20.0-44.0); MEAN CORPUSCULAR HGB CONC 35 g/dl (31.0-36.0); MEAN CORPUSCULAR VOLUME 94 fL (82-100); MONOCYTES # (AUTO) 0.9 /CMM (0.1-1.30); MONOCYTES % (AUTO) 7.5 % (2.0-12.0); NEUTROPHILS # (AUTO) 9.6 /CMM (1.8-8.9); NEUTROPHILS % (AUTO) 78.4 % (43.0-81.0); PLATELET COUNT (AUTO) 194 /CMM (150-450); RED BLOOD CELL COUNT(AUTO) 3.54 MIL/uL (4.0-5.2); WHITE BLOOD COUNT (AUTO) 12.2 K/uL (4.3-11.0)
[2018-05-26 06:36] LABS: CALCIUM, SERUM 8.2 mg/dL (8.5-10.1); CARBON DIOXIDE 27 mmol/L (21-32); CHLORIDE 107 mmol/L (98-107); CREATININE 0.4 mg/dL (0.6-1.3); GLUCOSE 85 mg/dL (74-106); POTASSIUM 3.6 mmol/L (3.5-5.1); SODIUM SERUM 143 mmol/L (136-145); UREA NITROGEN, BLOOD 8 mg/dL (7-18)
--- NOTE | 2018-05-26 06:45 | NUR ---
RN MS NOTES, PATIENT SLEEPING AT THIS TIME, BUT AROUSES EASILY TO VERBAL STIMULI, NO SOB/ACUTE DISTRESS NOTED, IVF INFUSING WELL AND PATIENT TOLERATED WELL, KCL IV REPLACED LAST NIGHT, NO EVENTS DURING THE NIGHTS, IN STABLE CONDITION, ALL SAFETY MEASURES IN PLACED, CALL LIGHT W/I REACH, WILL ENDORSE CONTINUITY OF CARE TO ONCOMING NURSE.
[2018-05-26 08:00] VITALS: BP 164/67
[2018-05-26] MEDS: TOLTERODINE 2 MG CAP.SR PO SCH (08:19)
[2018-05-26] MEDS: REPAGLINIDE 2 MG TABLET PO SCH (08:19)
[2018-05-26] MEDS: HYDROCODONE/APAP 5/325MG 1 EACH TABLET PO PRN (08:20)
[2018-05-26] MEDS: PANTOPRAZOLE 40 MG VIAL IV SCH (08:20)
[2018-05-26] MEDS: DOCUSATE SODIUM 250 MG CAPSULE PO SCH (08:20)
[2018-05-26] MEDS ORDERED: MEGESTROL ACETATE SUSP 400 MG/10 ML UDC PO SCH (09:00)
[2018-05-26] MEDS: CLOTRIMAZOLE 1% 15 GM TUBE TP SCH (09:20)
[2018-05-26] MEDS: Z GUARD REMEDY 2 OZ OINT TP SCH (09:20)
[2018-05-26] MEDS: CLONIDINE HCL 0.1 MG TABLET PO PRN (09:23)
[2018-05-26] MEDS: CLOPIDOGREL BISULFATE 75 MG TABLET PO SCH (09:24)
[2018-05-26] MEDS: IV NS 0.9% 1,000 ML IV PRN (09:34)
[2018-05-26 12:00] VITALS: BP 134/69
[2018-05-26 15:50] VITALS: BP 141/54
--- NOTE | 2018-05-26 16:10 | NUR ---
[facility] RN NOTE PATIENT PREPARED FOR DISCHARGE, EXITCARE AND DISCHARGE INSTRUCTIONS COMPLETE, PRINTED AND SIGNED WITH ANOTHER NURSE SINCE PATIENT UNABLE TO SIGN. PICTURES TAKEN OF SKIN ISSUES AND PLACED IN CHART. IV SITE REMOVED ON LEFT HAND, NO SIGNS OF BLEEDING OR INFECTION. PATIENT VITAL SIGNS STABLE, NO COMPLAINT OF PAIN. SOME ANXIETY NOTED. REPORT GIVEN TO EMT'S AT BEDSIDE. NO RESPIRATORY DISTRESS, ON ROOM AIR. BELONGINGS LIST COMPLETE AND SIGNED. PATIENT LEFT THE FACILITY WITH ALL PAPERWORK AND BELONGINGS ACCOMPANIED BY 2 EMT'S TO [facility]. FRIEND AT BEDSIDE SAID SHE WOULD MEET THE PATIENT THERE.
== END 2018-05-26 15:55 | DRG 640 ==
LOC: ER 15:40 → TELE1 20:30 → MEDSG1 05-24 09:50
PROVIDERS: ATTEND Internal Medicine
DX: E86.0 Dehydration (principal); G93.41 Metabolic encephalopathy; E44.0 Moderate protein-calorie malnutrition; I69.351 Hemiplegia and hemiparesis following cerebral infarction affecting right dominant side; I50.32 Chronic diastolic (congestive) heart failure; E87.6 Hypokalemia; E83.42 Hypomagnesemia; I25.10 Atherosclerotic heart disease of native coronary artery without angina pectoris; I11.0 Hypertensive heart disease with heart failure; R73.9 Hyperglycemia, unspecified; F03.90 Unspecified dementia, unspecified severity, without behavioral disturbance, psychotic disturbance, mood disturbance, and anxiety; E78.5 Hyperlipidemia, unspecified; F31.9 Bipolar disorder, unspecified; Z68.23 Body mass index [BMI] 23.0-23.9, adult; N20.0 Calculus of kidney; E78.00 Pure hypercholesterolemia, unspecified; G24.01 Drug induced subacute dyskinesia; M51.36 Other intervertebral disc degeneration, lumbar region; Z79.899 Other long term (current) drug therapy; Z87.891 Personal history of nicotine dependence; Z90.710 Acquired absence of both cervix and uterus; Z91.81 History of falling
CPT/HCPCS: 36415; 70450-TC; 71045-TC; 80048-TC; 80053-TC; 80061-TC; 80076-TC; 80305; 81000-TC; 83605-TC; 83735-TC; 84100-TC; 84443-TC; 84484-TC; 85025-TC; 85730-TC; 87040-TC; 87081-TC; 87086-TC; 87400; 93307-TC; C9113; G0378; G0480; J1650; J3370; J3475; J3480; J3490; J7030; J7050; J7060; Q9967